=== PATIENT | male | born 1955 | race African-American/Black ===

== ENCOUNTER 2016-05-16 15:23 | Emergency (ER) | payer BC ==
[2016-05-16 15:52] VITALS: BP 140/101
--- NOTE | 2016-05-16 16:52 | RAD ---
Indication: Cough, congestion, history of left upper lobectomy. Comparison is made with previous CT of the chest dated December 13, 2015 and prior x-ray dated October 28, 2014. 2 views of the chest including dual energy PA views are reviewed. Patient is status post left upper lobectomy. Lung aviles appear hyperinflated with scarring in the left apex. Volume loss in left hemithorax is noted. Left apical pleural thickening is noted. No definite pneumonia is identified. IMPRESSION: Postoperative changes without definite evidence of active cardiopulmonary disease.
--- NOTE | 2016-05-16 17:45 | UC ---
Respiratory Complaint HPI - HPI Summary HPI Summary: BODYACHES, FEVER, COUGH SINCE YESTERDAY. 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 - History of Current Complaint Chief Complaint: UCGeneralIllness Stated Complaint: RESP COMPLAINT HEADACHE Time Seen by Provider: 05/16/16 16:14 Hx Obtained From: Patient, Family/Application Development Specialist Onset/Duration: Sudden Onset, Lasting Days, Still Present Timing: Constant Severity Initially: Moderate Severity Currently: Moderate Pain Intensity: 0 Pain Scale Used: 0-10 Numeric Character: Cough: Nonproductive Associated Signs And Symptoms: Positive: Wheezing, URI, Nasal Congestion - Risk Factors Pulmonary Embolism Risk Factors: Negative Cardiac Risk Factors: Negative Pseudomonas Risk Factors: Negative Tuberculosis Risk Factors: Negative - Allergies/Home Medications Allergies/Adverse Reactions: Allergies Allergy/AdvReac Type Severity Reaction Status Date / Time Hydrocodone Allergy Nausea Verified 05/16/16 15:52 PMH/Surg Hx/FS Hx/Imm Hx Previously Healthy: Yes Endocrine History Of: Denies: Diabetes, Thyroid Disease Cardiovascular History Of: Reports: Hypertension Denies: Pacemaker/ICD, Congestive Heart Failure, Deep Vein Thrombosis Respiratory History Of: Reports: Bronchitis - 12/2013, [place] Denies: Asthma GI/ History Of: Denies: Ulcer, Gastrointestinal Bleed, Gall Bladder Disease, Kidney Stones, Renal Disease Neurological History Of: Denies: TIA, CVA, Dementia, Seizures, Migraine Psychological History Of: Denies: Anxiety, Depression, Bipolar Disorder, Schizophrenia Cancer History Of: Reports: Prostate Cancer - Prostatectomy Other History Of: Negative For: Anticoagulant Therapy - Surgical History Surgical History: Yes Surgery Procedure, Year, and Place: RIGHT HAND TRIGGER FINGER RELEASE, [facility] [place]. 07/2013-PROSTATECTOMY AT [facility] [place]. 11/25/13, RIGHT SHOULDER, [facility] [place] - Family History Known Family History: Positive: Unknown, Respiratory Disease - Social History Occupation: Employed Full-time Lives: With Family Alcohol Use: Rare Substance Use Type: None Smoking Status (MU): Former Smoker Type: Cigarettes Amount Used/How Often: 1/2 PPD X 44 YEARS- OFF AND ON Length of Time of Smoking/Using Tobacco: 20+ YEARS Have You Smoked in the Last Year: Yes When Did the Patient Quit Smoking/Using Tobacco: 02/2014' Household Exposure Type: Cigarettes - Immunization History Most Recent Influenza Vaccination: 04/08/2014 Most Recent Tetanus Shot: UNKNOWN Most Recent Pneumonia Vaccination: 03/22/2014 Review of Systems Constitutional: Fever, Chills Skin: Negative Eyes: Negative ENT: Negative Respiratory: Cough Cardiovascular: Negative Gastrointestinal: Negative Genitourinary: Negative Motor: Negative Neurovascular: Negative Musculoskeletal: Myalgia Neurological: Negative Psychological: Negative All Other Systems Reviewed And Are Negative: Yes Physical Exam Triage Information Reviewed: Yes Appearance: Well-Appearing, Well-Nourished, Pain Distress Vital Signs: Initial Vital Signs Temp 99.1 F 05/16/16 15:46 Pulse 98 05/16/16 15:46 Resp 20 05/16/16 15:46 BP 140/101 05/16/16 15:46 Pulse Ox 97 05/16/16 15:46 Vital Signs Reviewed: Yes Eye Exam: Normal Eyes: Positive: Conjunctiva Clear ENT: Positive: Hearing grossly normal, Pharynx normal, Nasal congestion, TMs normal Dental Exam: Normal Neck exam: Normal Neck: Positive: Supple, Nontender, No Lymphadenopathy Respiratory Exam: Other - PARTIAL LEFT LUNG LOBBECTOMY Respiratory: Positive: Chest non-tender, Lungs clear, Normal breath sounds, No respiratory distress, No accessory muscle use Cardiovascular Exam: Normal Cardiovascular: Positive: RRR, No Murmur, Pulses Normal, Brisk Capillary Refill Abdominal Exam: Normal Abdomen Description: Positive: Nontender, No Organomegaly Musculoskeletal Exam: Normal Musculoskeletal: Positive: Strength Intact, ROM Intact Neurological Exam: Normal Psychological Exam: Normal Psychological: Positive: Normal Response To Family Skin Exam: Normal UC Diagnostic Evaluation - Laboratory O2 Sat by Pulse Oximetry: 97 Respiratory Course/Dx - Differential Dx/Diagnosis Differential Diagnosis/HQI/PQRI: Bronchitis, Laryngitis, Sinusitis Provider Diagnoses: INFLUENZA Discharge - Discharge Plan Condition: Stable Disposition: HOME Prescriptions: Oseltamivir CAP* [Tamiflu CAP*] 75 mg PO BID #10 cap Patient Education Materials: Influenza (ED) Forms: *Work Release Referrals: Rodolfo Del Rio MD [Primary Care Provider] -
== END 2016-05-16 17:00 | disposition home or self-care (01) ==
LOC: UCEAST 15:23
DX: J11.1 Influenza due to unidentified influenza virus with other respiratory manifestations (principal); Z88.5 Allergy status to narcotic agent; Z87.891 Personal history of nicotine dependence
CPT/HCPCS: 71020; 87502; 99212; G0463

== ENCOUNTER 2016-07-15 15:09 | Emergency (ER) | payer BC ==
[2016-07-15 15:26] VITALS: BP 151/86
[2016-07-15] MEDS ORDERED: Albuterol 2.5 MG/3 ML NEB.SOL* (0.083%) INH ONE (15:46)
[2016-07-15] MEDS ORDERED: Ibuprofen TAB* 600 MG PO ONE (15:46)
--- NOTE | 2016-07-15 15:50 | UC ---
Respiratory Complaint HPI - HPI Summary HPI Summary: Patient has had fever, SOB, cough, sore throat and left ear pain sinus congestion and LUA for a few days. - History of Current Complaint Chief Complaint: UCRespiratory Stated Complaint: COLD,COUGH,ACHES Time Seen by Provider: 07/15/16 15:37 Hx Obtained From: Patient Onset/Duration: Sudden Onset, Lasting Days Timing: Constant Severity Initially: Moderate Severity Currently: Severe Character: Cough: Productive Aggravating Factors: Exertion, Deep Breaths, Recumbent Position Alleviating Factors: Nothing Associated Signs And Symptoms: Positive: Dyspnea, Fever, Chills, Sinus Discomfort - Risk Factors Pulmonary Embolism Risk Factors: Negative Cardiac Risk Factors: Negative - Allergies/Home Medications Allergies/Adverse Reactions: Allergies Allergy/AdvReac Type Severity Reaction Status Date / Time Hydrocodone Allergy Nausea Verified 07/15/16 15:25 Home Medications: Home Medications Albuterol HFA INHALER* [Ventolin HFA Inhaler*] 07/15/16 [History] Diltiazem HCl Coated Beads [Diltiazem HCl ER] 300 mg PO DAILY 07/15/16 [History Confirmed 07/15/16] Fluticasone NASAL SPRAY 50MCG* [Flonase NASAL SPRAY 50MCG*] 07/15/16 [History] Ibuprofen TAB* [Advil TAB*] 600 mg PO PRN 07/15/16 [History] PMH/Surg Hx/FS Hx/Imm Hx Previously Healthy: Yes Endocrine History Of: Denies: Diabetes, Thyroid Disease Cardiovascular History Of: Reports: Hypertension Denies: Pacemaker/ICD, Congestive Heart Failure, Deep Vein Thrombosis Respiratory History Of: Reports: Bronchitis - 12/2013, [place] Denies: Asthma GI/ History Of: Denies: Ulcer, Gastrointestinal Bleed, Gall Bladder Disease, Kidney Stones, Renal Disease Neurological History Of: Denies: TIA, CVA, Dementia, Seizures, Migraine Psychological History Of: Denies: Anxiety, Depression, Bipolar Disorder, Schizophrenia Cancer History Of: Reports: Prostate Cancer - Prostatectomy Other History Of: Negative For: Anticoagulant Therapy - Surgical History Surgical History: Yes Surgery Procedure, Year, and Place: RIGHT HAND TRIGGER FINGER RELEASE, [facility]. 07/2013-PROST[facility]OMY AT [facility]. 11/25/13, RIGHT SHOULDER, [facility] [place] - Family History Known Family History: Positive: Unknown, Respiratory Disease - Social History Alcohol Use: None Substance Use Type: None Smoking Status (MU): Former Smoker Type: Cigarettes Amount Used/How Often: 1/2 PPD X 44 YEARS- OFF AND ON Length of Time of Smoking/Using Tobacco: 20+ YEARS Have You Smoked in the Last Year: Yes When Did the Patient Quit Smoking/Using Tobacco: 02/2014' Household Exposure Type: Cigarettes - Immunization History Most Recent Influenza Vaccination: 04/08/2014 Most Recent Tetanus Shot: UNKNOWN Most Recent Pneumonia Vaccination: 03/22/2014 Review of Systems Constitutional: Fever, Chills, Fatigue Skin: Negative Eyes: Negative ENT: Sore Throat, Ear Ache, Nasal Discharge Respiratory: Shortness Of Breath, Cough Cardiovascular: Negative Gastrointestinal: Negative Genitourinary: Negative Motor: Negative Neurovascular: Negative Musculoskeletal: Negative Neurological: Headache Psychological: Negative All Other Systems Reviewed And Are Negative: Yes Physical Exam Triage Information Reviewed: Yes Appearance: Well-Nourished, Ill-Appearing, Pain Distress Vital Signs: Initial Vital Signs Temp 102.4 F 07/15/16 15:16 Pulse 118 07/15/16 15:16 Resp 18 07/15/16 15:16 BP 151/86 07/15/16 15:16 Pulse Ox 98 07/15/16 15:16 Vital Signs Reviewed: Yes Eye Exam: Normal Eyes: Positive: Other: - sclear is red and irritated, ENT: Positive: Pharyngeal erythema, TM bulging - bilateral Neck exam: Normal Neck: Positive: Supple, Nontender, No Lymphadenopathy Respiratory Exam: Normal Respiratory: Positive: Chest non-tender, No accessory muscle use, Respiratory distress - mild, Decreased breath sounds - RLL Cardiovascular Exam: Normal Cardiovascular: Positive: No Murmur, Pulses Normal, Tachycardia Abdominal Exam: Normal Abdomen Description: Positive: Nontender, No Organomegaly, Soft Bowel Sounds: Positive: Present Musculoskeletal Exam: Normal Musculoskeletal: Positive: Strength Intact, ROM Intact, No Edema Neurological Exam: Normal Neurological: Positive: Alert, Muscle Tone Normal Psychological Exam: Normal Skin Exam: Normal UC Diagnostic Evaluation - Laboratory O2 Sat by Pulse Oximetry: 98 Respiratory Course/Dx - Course Course Of Treatment: hx obtained, exam performed, meds reviewed, xray obtained of CHest, albuterol and ibuprofen given. Chest xray is negative, treated for sinus infection with ABX, - Differential Dx/Diagnosis Differential Diagnosis/HQI/PQRI: Asthma, Bronchitis, Exacerbation Of COPD, Influenza, Laryngitis, Lower Resp Infection, Sinusitis Provider Diagnoses: sinusitis. fever. cough and wheezing Discharge - Discharge Plan Condition: Stable Disposition: HOME Patient Education Materials: Sinusitis (ED) Additional Instructions: 1. take the medication as prescribed 2. increae your fluid intake and get plenty of rest. 3. follow up with any increase in Respiratory symptoms.
--- NOTE | 2016-07-15 16:35 | RAD ---
INDICATION: Cough, fever and shortness of breath. COMPARISON: Comparison is made with a prior CT of the chest from June 14, 2016 and a prior chest x-ray study from May 16, 2016. TECHNIQUE: Dual-energy PA and lateral views of the chest were obtained. FINDINGS: The heart is within normal limits in size. There are multiple surgical clips in the left hilar region. There is volume loss in the left upper lobe and at paramediastinal infiltrate in the left upper lobe which is unchanged from the prior study. No pleural effusion is seen. IMPRESSION: POSTSURGICAL CHANGES AND CHRONIC LEFT PARAMEDIASTINAL INFILTRATE UNCHANGED FROM PRIOR STUDIES.
== END 2016-07-15 17:09 | disposition home or self-care (01) ==
LOC: UCEAST 15:09
DX: J32.9 Chronic sinusitis, unspecified (principal); I10 Essential (primary) hypertension; Z85.46 Personal history of malignant neoplasm of prostate; Z87.891 Personal history of nicotine dependence
CPT/HCPCS: 71020; 99212; A9270-GY; G0463

== ENCOUNTER 2017-09-21 14:52 | Emergency (ER) | payer BC, OTHER ==
[2017-09-21 15:21] VITALS: BP 161/117
--- NOTE | 2017-09-21 16:54 | ED ---
Farhan Ruiz Natalie, scribed for Mino Mortensen MD on 09/21/17 at 1523 . ED Suture/Wound Check - HPI Summary HPI Summary: The patient is a 62 y/o M presenting to [facility] for surgical wound check of carpal tunnel release in the left hand and wrist from surgery on 09/15/17. The pt states that the pain has been increasing in his hand since this morning, rated 8/10 in severity. He also notes drainage at the site this morning which he cleaned up. He denies fevers. Dr. Toney martinez [place] was the hand surgeon who operated on him. - History Of Current Complaint Chief Complaint: EDExtremityUpper Stated Complaint: LT HAND INJURY Time Seen by Provider: 09/21/17 15:05 Hx Obtained From: Patient Onset/Duration: Lasting Days, Still Present Severity: Moderate Pain Intensity: 8 Pain Scale Used: 0-10 Numeric Procedure Type: Carpal tunnel release Surgery Date: 09/15/17 - Dr. Ziegler in [place] - Allergies/Home Medications Allergies/Adverse Reactions: Allergies Allergy/AdvReac Type Severity Reaction Status Date / Time hydrocodone Allergy Nausea Verified 09/21/17 15:02 PMH/Surg Hx/FS Hx/Imm Hx Endocrine/Hematology History: Denies: Hx Anticoagulant Therapy, Hx Blood Disorders, Hx Blood Transfusions, Hx Bone Marrow Disease, Hx Diabetes, Hx Systemic Lupus Erythematosus, Hx Sickle Cell Disease, Hx Thyroid Disease, Hx Anemia, Hx Unexplained Bleeding, Other Endocrine/Hematological Disorders Cardiovascular History: Reports: Hx Hypertension Denies: Hx Aneurysm, Hx Angina, Hx Angioplasty, Hx Auto Implanted Cardiovert Defib, Hx Cardiac Arrest, Hx Cardiomegaly, Hx Congenital Heart Disease, Hx Congestive Heart Failure, Hx Deep Vein Thrombosis, Hx Embolism, Hx Hypercholesterolemia, Hx Hypotension, Hx Pacemaker/ICD, Hx Peripheral Vascular Disease, Hx Rheumatic Fever, Hx Syncope, Hx Valvular Heart Disease, Other Cardiovascular Problems/Disorders Respiratory History: Reports: Other Respiratory Problems/Disorders - LEFT LUNG: CANCER DX'D IN MAR 2014 Denies: Hx Asthma GI History: Denies: Hx Cirrhosis, Hx Crohn's Disease, Hx Diverticulosis, Hx Gall Bladder Disease, Hx Gastroesophageal Reflux Disease, Hx Gastrointestinal Bleed, Hx Hiatal Hernia, Hx Irritable Bowel, Hx Jaundice, Hx Obstructive Bowel, Hx Ileostomy, Hx Pyloric Stenosis, Hx Ulcer, Other GI Disorders History: Reports: Other Problems/Disorders - 08/04 PROSTATE SURGERY Denies: Hx Acute Renal Failure, Hx Benign Prostatic Hyperplasia, Hx Chronic Renal Failure, Hx Dialysis, Hx Kidney Infection, Hx Kidney Stones, Hx Renal Disease Musculoskeletal History: Reports: Hx Arthritis - RIGHT SHOULDER Denies: Hx Rheumatoid Arthritis, Hx Back Problems, Hx Bursitis, Hx Congenital Bone Abnormalities, Hx Fibromyalgia, Hx Gout, Hx Orthopedic Injury, Hx Osteoporosis, Hx Scoliosis, Hx Tendonitis, Other Musculoskeletal History Sensory History: Denies: Hx Contacts or Glasses, Hx Hearing Aid Opthamlomology History: Denies: Hx Contacts or Glasses Neurological History: Denies: Hx Dementia, Hx Developmental Delay, Hx Headaches, Hx Migraine, Hx Nerve Disease, Hx Seizures, Hx Spinal Cord Injury, Hx Transient Ischemic Attacks (TIA), Other Neuro Impairments/Disorders Psychiatric History: Denies: Hx Anxiety, Hx Attention Deficit Hyperactivity Disorder, Hx Eating Disorder, Hx Depression, Hx Panic Disorder, Hx Post Traumatic Stress Disorder, Hx Inpatient Treatment, Hx Community Mental Health Tx, Hx Schizophrenia, Hx Bipolar Disorder, Hx Suicide Attempt, Hx of Violent Episodes Against Others, Hx Substance Abuse, Other Psychiatric Issues/Disorders - Cancer History Cancer Type, Location and Year: Prostate 2013; lung 2014 Hx Chemotherapy: Yes Hx Radiation Therapy: No Hx Palliative Cancer Treatment: No - Surgical History Surgery Procedure, Year, and Place: [place] [facility] [place] AT [facility]. 11[place]25[place]13[place] [facility] [place] Anesthesia Reactions: No Infectious Disease History: No Infectious Disease History: Denies: Hx Clostridium Difficile, Hx Hepatitis, Hx Human Immunodeficiency Virus (HIV), Hx of Known/Suspected MRSA, Hx Shingles, Hx Tuberculosis, Hx Known/ Suspected VRE, Hx Known/Suspected VRSA, History Other Infectious Disease, Traveled Outside the [place] in Last 30 Days - Family History Known Family History: Positive: Respiratory Disease - Social History Alcohol Use: None Substance Use Type: Reports: None Hx Tobacco Use: Yes Smoking Status (MU): Former Smoker Type: Cigarettes Amount Used/How Often: 1/2 PPD X 44 YEARS- OFF AND ON Length of Time of Smoking/Using Tobacco: 20+ YEARS Have You Smoked in the Last Year: Yes Review of Systems Negative: Fever Positive: Other - surgical wound to left palm and wrist at carpal tunnel area with some drainage All Other Systems Reviewed And Are Negative: Yes Physical Exam - Summary Physical Exam Summary: Appearance: Well appearing, no pain distress Skin: warm, dry, reflects adequate perfusion, sutured wound area of carpal tunnel of left wrist with small area to dehiscence, 3 surgical wounds with sutures that are intact Head/face: normal Eyes: EOMI, ELIZABETH ENT: normal Neck: supple, non-tender Respiratory: CTA, breath sounds present Cardiovascular: RRR, pulses symmetrical Abdomen: non-tender, soft Bowel Sounds: present Musculoskeletal: normal, strength/ROM intact Neuro: normal, sensory motor intact, A&Ox3 Triage Information Reviewed: Yes Vital Signs On Initial Exam: Initial Vitals Temp Pulse Resp BP Pulse Ox 99.5 F 113 18 141/119 97 09/21/17 14:57 09/21/17 14:57 09/21/17 14:57 09/21/17 14:57 09/21/17 14:57 Vital Signs Reviewed: Yes Procedures - Laceration/Wound Repair 1 Location: Other - left carpal tunnel area in hand and wrist Description: Linear Laceration/Wound Explored: Other Closure: SteriStrips - 2 Sterile Dressing Applied?: Yes - xeroform and dressed Diagnostics - Vital Signs Vital Signs Temp Pulse Resp BP Pulse Ox 09/21/17 14:57 99.5 F 113 18 141/119 97 - Laboratory Lab Statement: Any lab studies that have been ordered have been reviewed, and results considered in the medical decision making process. Re-Evaluation - Re-Evaluation First Eval Re-Evaluation Time: 15:20 Change: Improved - I sutured the pt's surgical wound and placed sterile dressing on it. The pt will be discharged home. Course/Dx - Course Course Of Treatment: Patient had a carpal tunnel release and still has the sutures intact. The epidermis only is slightly dehisced and at best a minimal clear drainage from it. The wound was dressed with Steri-Strips and Xeroform gauze. He was placed on Keflex. He'll follow up with his hand surgeon. - Clinical Impression Provider Diagnoses: Wound dehiscence, Elevated blood pressure reading Discharge - Sign-Out/Discharge Documenting (check all that apply): Discharge/Admit/Transfer - Pt will be discharged home. - Discharge Plan Condition: Good Disposition: HOME Prescriptions: Cephalexin CAP* [Keflex CAP*] 500 mg PO TID #15 cap Patient Education Materials: Wound Dehiscence (ED) Referrals: Rodolfo Del Rio MD [Primary Care Provider] - Additional Instructions: Follow-up with your hand surgeon tomorrow. Antibiotics are prescribed into the pharmacy for you. Return with puslike drainage, worse, new symptoms or other concerns. - Billing Disposition and Condition Condition: GOOD Disposition: Home The documentation as recorded by the Farhan lucas Natalie accurately reflects the service I personally performed and the decisions made by me, Mino Mortensen MD.
== END 2017-09-21 15:20 | disposition home or self-care (01) ==
LOC: ED 14:52
DX: T81.31XA Disruption of external operation (surgical) wound, not elsewhere classified, initial encounter (principal); Z87.891 Personal history of nicotine dependence
CPT/HCPCS: 99282

== ENCOUNTER → 2017-09-27 08:48 | Emergency (ER) | payer BC ==
[2017-09-27 08:55] VITALS: BP 157/106
== END | disposition left against medical advice (07) ==
LOC: ED 08:48
DX: R60.0 Localized edema (principal); Z53.21 Procedure and treatment not carried out due to patient leaving prior to being seen by health care provider

== ENCOUNTER 2017-09-27 21:11 | Emergency (ER) | payer BC ==
[2017-09-27] MEDS ORDERED: Cefepime(*) 2 GM in NS 0.9% 50 ML* 50 ML IVPB ONE (21:30)
[2017-09-27] MEDS ORDERED: Ketorolac INJ* 30 MG/ML 1 ML VIAL IV PUSH ONE (21:31)
[2017-09-27] MEDS ORDERED: NS 0.9% 50 ML* 50 ML ONE (21:38)
[2017-09-27] MEDS ORDERED: NS 0.9% 1000 ML* 1,000 ML IV ONE (21:39)
[2017-09-27 21:55] LABS: ABS Basophils 0.1 10^3/ul (0-0.2); ABS Eosinophils 0.1 10^3/ul (0-0.6); ABS Lymphocytes 1.5 10^3/ul (1.0-4.8); ABS Monocytes 0.4 10^3/ul (0-0.8); ABS Neutrophils 3.4 10^3/ul (1.5-7.7); ABS Nucleated RBC 0 10^3/ul; Eosinophil % 2.7 % (0-6); Hematocrit 46 % (42-52); Hemoglobin 15.7 g/dl (14.0-18.0); Lymphocyte % 27.3 % (25-47); Mean Corpuscular HGB Conc 34 g/dl (31-36); Mean Corpuscular Hemoglobin 31 pg (27-31); Mean Corpuscular Volume 90 fL (80-94); Mean Platelet Volume 7.9 um3 (7.4-10.4); Nucleated Red Blood Cells % 0.1; Platelet Count 205 10^3/ul (150-450); Red Blood Count 5.14 10^6/ul (4.00-5.40); Red Cell Distribution Width 14 % (10.5-15); White Blood Count 5.5 10^3/ul (3.5-10.8)
[2017-09-27] MEDS ORDERED: Vancomycin(*) 1,250 MG IV x ONCE IVPB ONE ×2 (22:00)
[2017-09-27] MEDS ORDERED: Vancomycin(*) 1,000 MG VIAL IVPB SCH (22:00)
[2017-09-27 22:12] LABS: EGFR Non-African American 51.3 (>60)
--- NOTE | 2017-09-27 22:19 | ED ---
Upper Extremity Pain - HPI Summary HPI Summary: Patient is a 62-year-old male 2 weeks s/p left carpal tunnel surgery with complaint of left volar wrist pain and swelling with erythema streak extending proximally up the forearm. Denies any pain to the forearm, however endorses pain to the volar wrist. Denies any pain to the dorsum of the wrist. He was seen 1 week ago with complaint of swelling in the wrist and hand with slight erythema to the area. He was prescribed antibiotics but states he never picked these up. Swelling is now worsening and now he has developed the red streak up the arm. Denies any fevers, sweats, chills. He is able to make a fist without pain. Denies any decreased strength. Good cap refill. Radial side pulses good. - History of Current Complaint Chief Complaint: EDExtremityUpper Stated Complaint: HAND INJURY Time Seen by Provider: 09/27/17 21:25 Hx Obtained From: Patient Onset/Duration: Started Hours Ago Timing: Constant Severity Initially: Moderate Severity Currently: Moderate Pain Location: Forearm, Wrist Character: Aching Aggravating Factor(s): Lifting, Flexion, Extension Alleviating Factor(s): Rest, Ice Associated Signs & Symptoms: Positive: Swelling, Redness. Negative: Numbness/ Tingling Related History: Dominant Hand Right - Risk Factors Non-Orthopedic Risk Factor: Negative DVT Risk Factors: Negative Septic Arthritis Risk Factor: Negative Compartment Syndrome Risk Factors: Pain - Allergies/Home Medications Allergies/Adverse Reactions: Allergies Allergy/AdvReac Type Severity Reaction Status Date / Time hydrocodone Allergy Nausea Verified 09/27/17 21:33 Home Medications: Home Medications Cephalexin CAP* [Keflex 500 CAP*] 500 mg PO BID 09/28/17 [History Confirmed 11/08] PMH/Surg Hx/FS Hx/Imm Hx Previously Healthy: Yes Endocrine/Hematology History: Denies: Hx Anticoagulant Therapy, Hx Blood Disorders, Hx Blood Transfusions, Hx Bone Marrow Disease, Hx Diabetes, Hx Systemic Lupus Erythematosus, Hx Sickle Cell Disease, Hx Thyroid Disease, Hx Anemia, Hx Unexplained Bleeding, Other Endocrine/Hematological Disorders Cardiovascular History: Reports: Hx Hypertension Denies: Hx Aneurysm, Hx Angina, Hx Angioplasty, Hx Auto Implanted Cardiovert Defib, Hx Cardiac Arrest, Hx Cardiomegaly, Hx Congenital Heart Disease, Hx Congestive Heart Failure, Hx Deep Vein Thrombosis, Hx Embolism, Hx Hypercholesterolemia, Hx Hypotension, Hx Pacemaker/ICD, Hx Peripheral Vascular Disease, Hx Rheumatic Fever, Hx Syncope, Hx Valvular Heart Disease, Other Cardiovascular Problems/Disorders Respiratory History: Reports: Other Respiratory Problems/Disorders - LEFT LUNG: CANCER DX'D IN MAR 2014 Denies: Hx Asthma GI History: Denies: Hx Cirrhosis, Hx Crohn's Disease, Hx Diverticulosis, Hx Gall Bladder Disease, Hx Gastroesophageal Reflux Disease, Hx Gastrointestinal Bleed, Hx Hiatal Hernia, Hx Irritable Bowel, Hx Jaundice, Hx Obstructive Bowel, Hx Ileostomy, Hx Pyloric Stenosis, Hx Ulcer, Other GI Disorders History: Reports: Other Problems/Disorders - 08/04 PROSTATE SURGERY Denies: Hx Acute Renal Failure, Hx Benign Prostatic Hyperplasia, Hx Chronic Renal Failure, Hx Dialysis, Hx Kidney Infection, Hx Kidney Stones, Hx Renal Disease Musculoskeletal History: Reports: Hx Arthritis - RIGHT SHOULDER Denies: Hx Rheumatoid Arthritis, Hx Back Problems, Hx Bursitis, Hx Congenital Bone Abnormalities, Hx Fibromyalgia, Hx Gout, Hx Orthopedic Injury, Hx Osteoporosis, Hx Scoliosis, Hx Tendonitis, Other Musculoskeletal History Sensory History: Denies: Hx Contacts or Glasses, Hx Hearing Aid Opthamlomology History: Denies: Hx Contacts or Glasses Neurological History: Denies: Hx Dementia, Hx Developmental Delay, Hx Headaches, Hx Migraine, Hx Nerve Disease, Hx Seizures, Hx Spinal Cord Injury, Hx Transient Ischemic Attacks (TIA), Other Neuro Impairments/Disorders Psychiatric History: Denies: Hx Anxiety, Hx Attention Deficit Hyperactivity Disorder, Hx Eating Disorder, Hx Depression, Hx Panic Disorder, Hx Post Traumatic Stress Disorder, Hx Inpatient Treatment, Hx Community Mental Health Tx, Hx Schizophrenia, Hx Bipolar Disorder, Hx Suicide Attempt, Hx of Violent Episodes Against Others, Hx Substance Abuse, Other Psychiatric Issues/Disorders - Cancer History Cancer Type, Location and Year: Prostate 2013; lung 2014 Hx Chemotherapy: Yes Hx Radiation Therapy: No Hx Palliative Cancer Treatment: No - Surgical History Surgery Procedure, Year, and Place: RIGHT HAND TRIGGER FINGER RELEASE, [facility]. 07/2013-PROSTATECTOMY AT [facility]. 11/25/13, RIGHT SHOULDER, [facility] Hx Anesthesia Reactions: No - Immunization History Date of Tetanus Vaccine: unk Date of Influenza Vaccine: fall 2016 Hx Pertussis Vaccination: No Immunizations Up to Date: Unable to Obtain/Confirm Infectious Disease History: No Infectious Disease History: Denies: Hx Clostridium Difficile, Hx Hepatitis, Hx Human Immunodeficiency Virus (HIV), Hx of Known/Suspected MRSA, Hx Shingles, Hx Tuberculosis, Hx Known/ Suspected VRE, Hx Known/Suspected VRSA, History Other Infectious Disease, Traveled Outside the [place] in Last 30 Days - Family History Known Family History: Positive: Unknown, Respiratory Disease - Social History Occupation: Employed Full-time Lives: With Family Alcohol Use: None Hx Substance Use: No Substance Use Type: Reports: None Hx Tobacco Use: Yes Smoking Status (MU): Former Smoker Type: Cigarettes Amount Used/How Often: 1/2 PPD X 44 YEARS- OFF AND ON Length of Time of Smoking/Using Tobacco: 20+ YEARS Have You Smoked in the Last Year: Yes Review of Systems Constitutional: Negative Negative: Fever, Chills, Fatigue, Skin Diaphoresis Negative: Epistaxis, Dental Pain Negative: Palpitations, Chest Pain Genitourinary: Negative Positive: no symptoms reported, see HPI Positive: Arthralgia - left volar wrist pain Positive: Other - erythematous streak up to the elbow from wrist Neurological: Negative All Other Systems Reviewed And Are Negative: Yes Physical Exam Triage Information Reviewed: Yes Vital Signs On Initial Exam: Initial Vitals Temp Pulse Resp BP Pulse Ox 97.8 F 85 16 168/114 98 09/27/17 21:18 09/27/17 21:18 09/27/17 21:18 09/27/17 21:18 09/27/17 21:18 Vital Signs Reviewed: Yes Appearance: Positive: Well-Appearing, Well-Nourished Skin: Positive: Warm, Skin Color Reflects Adequate Perfusion, Other - left volar wrist erythema and swelling with eythematous streak up the forearm extending to the elbow resembling a superficial thrombophlebititis as this area is slightly raised. Head/Face: Positive: Normal Head/Face Inspection Eyes: Positive: Normal, ELIZABETH, Conjunctiva Clear Neck: Positive: Supple, Nontender, No Lymphadenopathy Respiratory/Lung Sounds: Positive: Clear to Auscultation, Breath Sounds Present Cardiovascular: Positive: RRR, Pulses are Symmetrical in both Upper and Lower Extremities Neurological: Positive: Sensory/Motor Intact, Alert, Oriented to Person Place, Time Psychiatric: Positive: Normal AVPU Assessment: Alert Diagnostics - Vital Signs Vital Signs Temp Pulse Resp BP Pulse Ox 09/27/17 21:18 97.8 F 85 16 168/114 98 - Laboratory Lab Results: Lab Results 09/27/17 09/27/17 09/27/17 Range/Units 21:44 21:44 21:44 WBC 5.5 (3.5-10.8) 10^3/ul RBC 5.14 (4.00-5.40) 10^6/ul Hgb 15.7 (14.0-18.0) g/dl Hct 46 (42-52) % MCV 90 (80-94) fL MCH 31 (27-31) pg MCHC 34 (31-36) g/dl RDW 14 (10.5-15) % Plt Count 205 (150-450) 10^3/ul MPV 7.9 (7.4-10.4) um3 Neut % (Auto) 61.7 (38-83) % Lymph % (Auto) 27.3 (25-47) % [place] % (Auto) 7.2 H (0-7) % Eos % (Auto) 2.7 (0-6) % Baso % (Auto) 1.1 (0-2) % Absolute Neuts (auto) 3.4 (1.5-7.7) 10^3/ul Absolute Lymphs (auto) 1.5 (1.0-4.8) 10^3/ul Absolute Monos (auto) 0.4 (0-0.8) 10^3/ul Absolute Eos (auto) 0.1 (0-0.6) 10^3/ul Absolute Basos (auto) 0.1 (0-0.2) 10^3/ul Absolute Nucleated RBC 0 10^3/ul Nucleated RBC % 0.1 ESR Pending Sodium 136 (135-145) mmol/L Potassium 3.9 (3.5-5.0) mmol/L Chloride 102 (101-111) mmol/L Carbon Dioxide 24 (22-32) mmol/L Anion Gap 10 (2-11) mmol/L BUN 19 (6-24) mg/dL Creatinine 1.41 H (0.67-1.17) mg/dL Est GFR ( Amer) 62.0 (>60) Est GFR (Non-Af Amer) 51.3 (>60) BUN/Creatinine Ratio 13.5 (8-20) Glucose 88 (70-100) mg/dL Lactic Acid 1.2 (0.5-2.0) mmol/L Calcium 9.1 (8.6-10.3) mg/dL Total Bilirubin 0.50 (0.2-1.0) mg/dL AST 22 (13-39) U/L ALT 22 (7-52) U/L Alkaline Phosphatase 68 (34-104) U/L Total Protein 7.2 (6.4-8.9) g/dL Albumin 4.2 (3.2-5.2) g/dL Globulin 3.0 (2-4) g/dL Albumin/Globulin Ratio 1.4 (1-3) Result Diagrams: 09/27/17 21:44 09/27/17 21:44 Lab Statement: Any lab studies that have been ordered have been reviewed, and results considered in the medical decision making process. Course/Dx - Course Course Of Treatment: During the course of treatment, the patient's evaluated for left-sided volar wrist pain and swelling 2 weeks s/p carpal tunnel surgery. He states he has an appointment in 2 days with his surgeon at [facility]. He was seen in the ED for same one week ago and was prescribed antibiotics, however he never picked him up. CT of the extremity obtained to assure no abscess. CT findings state there is mild diffuse stranding and edema noted in the subcutaneous fat of the volar aspect of the distal forearm and wrist. No localized inflammatory fluid collection or abscess is seen. There is no gas seen in the soft tissues. Vancomycin and cefepime ordered while awaiting labs. Blood cultures pending. Labs obtained and are unremarkable showing no elevated white count. No elevated sedimentation rate and CRP is only mildly elevated at 10. He will be discharged home with the Keflex he was prescribed last week 3 times daily. The red streak to the volar forearm appears to be a superficial thrombophlebitis. He will take ibuprofen 600mg three times daily as well as ice to the area. He voices no concerns at this time. He will follow -up on Friday as scheduled. - Diagnoses Provider Diagnoses: Superficial thrombophlebitis Discharge - Sign-Out/Discharge Documenting (check all that apply): Discharge/Admit/Transfer - Discharge Plan Condition: Stable Disposition: HOME Referrals: Rodolfo Del Rio MD [Primary Care Provider] - Additional Instructions: As discussed, there is no obvious abscess or fluid collection. You do not have any other evidence of systemic infection You appear to have a thrombophlebitis to the arm Ibuprofen 600mg three times daily Ice compresses to the area Keflex as prescribed - do not miss a dose Follow up with your orthopedic surgeon as scheduled on Friday - Billing Disposition and Condition Condition: STABLE Disposition: Home
[2017-09-28 00:05] VITALS: BP 126/82
--- NOTE | 2017-09-28 06:55 | RAD ---
INDICATION: Infection left hand. COMPARISON: There are no prior studies available for comparison. TECHNIQUE: Contiguous axial sections were obtained of the left hand. Images were reconstructed in the sagittal and coronal planes. FINDINGS: There is diffuse soft tissue swelling which is mainly in the subcutaneous tissues most prominent along the volar aspect of the hand and wrist. No focal fluid collection or abscess is seen. There is a transverse ununited fracture through the midportion of the scaphoid bone. There is also a small ununited fracture fragment arising from the dorsal aspect of the lunate bone. There is dorsal tilting of the lunate bone consistent with dorsal intercalated segmental instability. There is cystic or erosive change present throughout the carpal bones. IMPRESSION: 1. SOFT TISSUE SWELLING MOST CONSISTENT WITH CELLULITIS. NO EVIDENCE FOR ABSCESS. 2. OLD UNUNITED FRACTURES OF THE SCAPHOID AND LUNATE BONES. 3. DORSAL INTERCALATED SEGMENTAL INSTABILITY. 4. LUCENT LESIONS IN THE CARPAL BONES SUGGESTIVE OF EROSIONS OR SUBCHONDRAL CYSTIC CHANGE.
== END 2017-09-28 00:06 | disposition home or self-care (01) ==
LOC: ED 21:11
DX: I80.8 Phlebitis and thrombophlebitis of other sites (principal); M89.9 Disorder of bone, unspecified; Z87.891 Personal history of nicotine dependence; Z88.5 Allergy status to narcotic agent
CPT/HCPCS: 36415; 80053; 83605; 85025; 85652; 86140; 87040; 96365; 96375; 99283; J0692; J1885; J3370

== ENCOUNTER 2017-12-09 14:31 | Emergency (ER) | payer BC ==
[2017-12-09 15:01] VITALS: BP 126/101
--- NOTE | 2017-12-09 15:55 | RAD ---
Indication: 3 weeks LEFT shoulder pain without proceeding injury. Comparison: No relevant prior exams available on the [facility] PACS for comparison. Technique: Internal rotation AP, external rotation Grashey, scapular Y, axillary views LEFT shoulder Report: Negative for fracture or suspicious focal osseous lesion. Small inferior acromial bone spur. Mild glenohumeral joint osteophytosis without significant joint space narrowing. Reference the internal rotation view there is evidence for calcific tendinopathy involving the infraspinatus tendon. Unremarkable soft tissue contours. IMPRESSION: #. Mild glenohumeral joint osteoarthritis. #. Calcific tendinopathy of the infraspinatus. #. Small inferior acromial bone spur.
--- NOTE | 2017-12-09 16:02 | UC ---
Shoulder Pain HPI - HPI Summary HPI Summary: left shoulder pain x 3 weeks no known injury , lots of heavy lifting at work pain is on top of the left shoulder, radiation to left bicep + weakness of left arm - History of Current Complaint Chief Complaint: UCUpperExtremity Stated Complaint: L SHOULDER PAIN Time Seen by Provider: 12/09/17 15:29 Hx Obtained From: Patient Onset/Duration: Gradual Onset, Lasting Weeks - 3, Still Present Timing: Constant Severity Initially: Moderate Severity Currently: Moderate Pain Intensity: 9 Character: Aching Aggravating Factor(s): Movement, Lifting, Flexion, Extension Alleviating Factor(s): Rest Associated Signs And Symptoms: Positive: Weakness. Negative: Swelling, Redness , Bruising, Fever, Numbness/Tingling - Allergies/Home Medications Allergies/Adverse Reactions: Allergies Allergy/AdvReac Type Severity Reaction Status Date / Time hydrocodone Allergy Nausea Verified 12/09/17 15:01 PMH/Surg Hx/FS Hx/Imm Hx - Additional Past Medical History Additional PMH: prostate ca Cardiovascular History: Hypertension Other History Of: Negative For: Anticoagulant Therapy - Surgical History Surgical History: Yes Surgery Procedure, Year, and Place: RIGHT HAND TRIGGER [place] [facility]-PROST[facility]OMY AT [facility]. 11/25/13, RIGHT SHOULDER, [facility] - Family History Known Family History: Positive: Unknown, Respiratory Disease - Social History Alcohol Use: Rare Substance Use Type: None Smoking Status (MU): Former Smoker Type: Cigarettes Amount Used/How Often: 1/2 PPD X 44 YEARS- OFF AND ON Length of Time of Smoking/Using Tobacco: 20+ YEARS Have You Smoked in the Last Year: Yes When Did the Patient Quit Smoking/Using Tobacco: 02/2014' Household Exposure Type: Cigarettes - Immunization History Most Recent Influenza Vaccination: 04/08/2014 Most Recent Tetanus Shot: UNKNOWN Most Recent Pneumonia Vaccination: 03/22/2014 Review of Systems Constitutional: Negative Skin: Negative Eyes: Negative ENT: Negative Respiratory: Negative Is Patient Immunocompromised?: No All Other Systems Reviewed And Are Negative: Yes Physical Exam Triage Information Reviewed: Yes Appearance: Well-Appearing, No Pain Distress, Well-Nourished Vital Signs: Initial Vital Signs Temp 98.1 F 12/09/17 14:56 Pulse 99 12/09/17 14:56 Resp 20 12/09/17 14:56 BP 126/101 12/09/17 14:56 Pulse Ox 97 12/09/17 14:56 Vital Signs Reviewed: Yes Eyes: Positive: Conjunctiva Clear ENT: Positive: Normal ENT inspection, Hearing grossly normal, Pharynx normal Neck: Positive: Supple, Nontender, No Lymphadenopathy Respiratory: Positive: Chest non-tender, Lungs clear, Normal breath sounds Cardiovascular: Positive: RRR, No Murmur, Pulses Normal Musculoskeletal: Positive: Other: - left shoulder: no swelling, no erythema, + diffuse tenderness, pain with flexion and extension , good strength Diagnostics - Laboratory Diagnostic Studies Completed/Ordered: left shoulder : IMPRESSION: #. Mild glenohumeral joint osteoarthritis. #. Calcific tendinopathy of the infraspinatus. #. Small inferior acromial bone spur. Shoulder Course/Dx - Differential Dx/Diagnosis Provider Diagnoses: calcific tendonitis left shoulder Discharge - Sign-Out/Discharge Documenting (check all that apply): Patient Departure All imaging exams completed and their final reports reviewed: Yes - Discharge Plan Condition: Stable Disposition: HOME Prescriptions: Naproxen [Naproxen 500 mg tab] 500 mg PO BID #20 tablet Patient Education Materials: Calcific Tendinitis (ED) Referrals: Rodolfo Del Rio MD [Primary Care Provider] - 7 Days - Billing Disposition and Condition Condition: STABLE Disposition: Home
== END 2017-12-09 16:04 | disposition home or self-care (01) ==
LOC: UCEAST 14:31
DX: M75.32 Calcific tendinitis of left shoulder (principal); M19.012 Primary osteoarthritis, left shoulder; Z87.891 Personal history of nicotine dependence; Z88.5 Allergy status to narcotic agent
CPT/HCPCS: 99212; G0463

== ENCOUNTER 2018-04-20 03:08 | Emergency (ER) | payer SELFPAY ==
--- NOTE | 2018-04-20 03:25 | ED ---
Throat Pain/Nasal Congestion - HPI Summary HPI Summary: A 62 y/o M presents to ED with c/o constant R-sided lower dental pain onset yesterday. Pain is described as throbbing. He had a similar pain at the same tooth two years ago. He took ABX which resolved the pain. He did not follow-up with a dentist at that time. - History of Current Complaint Chief Complaint: EDDentalPain Time Seen by Provider: 04/20/18 03:21 Hx Obtained From: Patient Onset/Duration: Lasting Days - yesterday, Still Present - Allergies/Home Medications Allergies/Adverse Reactions: Allergies Allergy/AdvReac Type Severity Reaction Status Date / Time hydrocodone Allergy Nausea Verified 04/20/18 03:13 Home Medications: Home Medications Fluticasone HFA 110 mcg(NF) [Flovent HFA 110 mcg(NF)] 1 puff INH BID 04/20/18 [ History Confirmed 04/20/18] PMH/Surg Hx/FS Hx/Imm Hx Previously Healthy: No Endocrine/Hematology History: Denies: Hx Anticoagulant Therapy, Hx Blood Disorders, Hx Blood Transfusions, Hx Bone Marrow Disease, Hx Diabetes, Hx Systemic Lupus Erythematosus, Hx Sickle Cell Disease, Hx Thyroid Disease, Hx Anemia, Hx Unexplained Bleeding, Other Endocrine/Hematological Disorders Cardiovascular History: Reports: Hx Hypertension Denies: Hx Aneurysm, Hx Angina, Hx Angioplasty, Hx Auto Implanted Cardiovert Defib, Hx Cardiac Arrest, Hx Cardiomegaly, Hx Congenital Heart Disease, Hx Congestive Heart Failure, Hx Deep Vein Thrombosis, Hx Embolism, Hx Hypercholesterolemia, Hx Hypotension, Hx Pacemaker/ICD, Hx Peripheral Vascular Disease, Hx Rheumatic Fever, Hx Syncope, Hx Valvular Heart Disease, Other Cardiovascular Problems/Disorders Respiratory History: Reports: Other Respiratory Problems/Disorders - LEFT LUNG: CANCER DX'D IN MAR 2014 Denies: Hx Asthma, Hx Chronic Obstructive Pulmonary Disease (COPD) GI History: Denies: Hx Cirrhosis, Hx Crohn's Disease, Hx Diverticulosis, Hx Gall Bladder Disease, Hx Gastroesophageal Reflux Disease, Hx Gastrointestinal Bleed, Hx Hiatal Hernia, Hx Irritable Bowel, Hx Jaundice, Hx Obstructive Bowel, Hx Ileostomy, Hx Pyloric Stenosis, Hx Ulcer, Other GI Disorders History: Reports: Other Problems/Disorders - 08/04 PROSTATE SURGERY Denies: Hx Acute Renal Failure, Hx Benign Prostatic Hyperplasia, Hx Chronic Renal Failure, Hx Dialysis, Hx Kidney Infection, Hx Kidney Stones, Hx Renal Disease Musculoskeletal History: Reports: Hx Arthritis - RIGHT SHOULDER Denies: Hx Rheumatoid Arthritis, Hx Back Problems, Hx Bursitis, Hx Congenital Bone Abnormalities, Hx Fibromyalgia, Hx Gout, Hx Orthopedic Injury, Hx Osteoporosis, Hx Scoliosis, Hx Tendonitis, Other Musculoskeletal History Sensory History: Denies: Hx Contacts or Glasses, Hx Hearing Aid Opthamlomology History: Denies: Hx Contacts or Glasses Neurological History: Denies: Hx Dementia, Hx Developmental Delay, Hx Headaches, Hx Migraine, Hx Nerve Disease, Hx Seizures, Hx Spinal Cord Injury, Hx Transient Ischemic Attacks (TIA), Other Neuro Impairments/Disorders Psychiatric History: Denies: Hx Anxiety, Hx Attention Deficit Hyperactivity Disorder, Hx Eating Disorder, Hx Depression, Hx Panic Disorder, Hx Post Traumatic Stress Disorder, Hx Inpatient Treatment, Hx Community Mental Health Tx, Hx Schizophrenia, Hx Bipolar Disorder, Hx Suicide Attempt, Hx of Violent Episodes Against Others, Hx Substance Abuse, Other Psychiatric Issues/Disorders - Cancer History Cancer Type, Location and Year: Prostate 2013; lung 2014 Hx Chemotherapy: Yes Hx Radiation Therapy: No Hx Palliative Cancer Treatment: No - Surgical History Surgery Procedure, Year, and Place: RIGHT HAND TRIGGER FINGER RELEASE, [facility]. 07/2013-PROSTATECTOMY AT [facility]. 11/25/13, RIGHT SHOULDER, [facility] Hx Anesthesia Reactions: No - Immunization History Date of Tetanus Vaccine: unk Date of Influenza Vaccine: fall 2016 Infectious Disease History: No Infectious Disease History: Denies: Hx Clostridium Difficile, Hx Hepatitis, Hx Human Immunodeficiency Virus (HIV), Hx of Known/Suspected MRSA, Hx Shingles, Hx Tuberculosis, Hx Known/ Suspected VRE, Hx Known/Suspected VRSA, History Other Infectious Disease, Traveled Outside the [place] in Last 30 Days - Family History Known Family History: Positive: Respiratory Disease - Social History Occupation: Employed Full-time Lives: With Family Alcohol Use: Rare Hx Substance Use: No Substance Use Type: Reports: None Hx Tobacco Use: Yes Smoking Status (MU): Former Smoker Type: Cigarettes Amount Used/How Often: 1/2 PPD X 44 YEARS- OFF AND ON Length of Time of Smoking/Using Tobacco: 20+ YEARS Have You Smoked in the Last Year: Yes Review of Systems Positive: Dental Pain Negative: Cough All Other Systems Reviewed And Are Negative: Yes Physical Exam - Summary Physical Exam Summary: Appearance: Well-appearing, Well-nourished, lying in bed comfortable Skin: Warm, dry, no obvious rash Eyes: sclera anicteric, no conjunctival pallor ENT: mucous membranes moist DENTAL: R lower 1st molar is extensively carious, pointing at the gingiva at base of the tooth Neck: deferred Respiratory: No signs of respiratory distress Cardiovascular: Appears well perfused, pulses are nml Abdomen: deferred Musculoskeletal: Moving all 4 extremities without obvious discomfort Neurological: Awake and alert, mentation is normal, speech is fluent and appropriate Psychiatric: affect is normal, does not appear anxious or depressed Triage Information Reviewed: Yes Vital Signs On Initial Exam: Initial Vitals Temp Pulse Resp BP Pulse Ox 97.5 F 99 16 171/131 95 04/20/18 03:09 04/20/18 03:09 04/20/18 03:09 04/20/18 03:09 04/20/18 03:09 Vital Signs Reviewed: Yes Diagnostics - Vital Signs Vital Signs Temp Pulse Resp BP Pulse Ox 04/20/18 03:09 97.5 F 99 16 171/131 95 - Laboratory Lab Statement: Any lab studies that have been ordered have been reviewed, and results considered in the medical decision making process. EENT Course/Dx - Course Course Of Treatment: A 62 y/o M presents to ED with c/o constant R-sided lower dental pain onset yesterday. Pain is described as throbbing. He had a similar pain at the same tooth two years ago. He took ABX which resolved the pain. He did not follow-up with a dentist at that time. After administering a dental block with bupivacaine and lidocaine with epinephrine and obtaining good anesthesia, the dental abscess at the gingiva was incised with a #11 blade and pus exuded from the wound. Pt will be D/C home with penicillin and to f/u with a dentist. - Diagnoses Provider Diagnoses: Dental abscess Discharge - Sign-Out/Discharge Documenting (check all that apply): Patient Departure - D/C - Discharge Plan Condition: Stable Disposition: HOME Prescriptions: Penicillin VK TAB* [Penicillin VK 250 mg Tab*] 500 mg PO QID #40 tab Patient Education Materials: Dental Abscess (ED) Forms: *Work Release Referrals: Rodolfo Del Rio MD [Primary Care Provider] - Additional Instructions: You need to see a dentist to have that tooth pulled, otherwise it's going to keep getting abscessed. - Billing Disposition and Condition Condition: STABLE Disposition: Home - Attestation Statements Document Initiated by Shayy: Yes Documenting Scribe: Zenaida Celis Provider For Whom Shayy is Documenting (Include Credential): Dr. Edwin Garcia MD Scribe Attestation: Zenaida Ruiz, scribed for Dr. Edwin Garcia MD on 04/20/18 at 0530. Scribe Documentation Reviewed: Yes Provider Attestation: The documentation as recorded by the shayy, Zenaida Celis accurately reflects the service I personally performed and the decisions made by me, Dr. Edwin Gracia MD Status of Scribe Document: Viewed
[2018-04-20] MEDS ORDERED: Penicillin VK TAB* 250 MG PO ONE (03:34)
[2018-04-20 03:52] VITALS: BP 167/120
== END 2018-04-20 03:50 | disposition home or self-care (01) ==
LOC: ED 03:08
DX: K04.7 Periapical abscess without sinus (principal); Z88.5 Allergy status to narcotic agent; Z87.891 Personal history of nicotine dependence
CPT/HCPCS: 99282

== ENCOUNTER → 2018-07-02 09:22 | Emergency (ER) | payer BC ==
[~2018-07-02 09:22] MED LIST: Diltiazem CD CAP* 120 MG PO ONE; Diltiazem CD CAP* 180 MG PO SCH
[2018-07-02 09:30] VITALS: BP 174/116
--- NOTE | 2018-07-02 10:22 | ED ---
Hypertension - HPI Summary HPI Summary: A 63 y/o M with PMHx: HTN, Lung CA presents to ED sent from oncology, Dr. Bhat 's office for elevated BP (162/126) this AM. Pt ran out of his HTN medication for an unknown amount of time. Denies LUA, CP, SOB, blurred vision. He had Lung CA about 6 years ago, and did chemo/radiation, had part of his lung removed. Denies PMHx: DM. - History of Current Complaint Chief Complaint: EDHypertension Stated Complaint: HIGH BP PER NURSE Time Seen by Provider: 07/02/18 10:20 Hx Obtained From: Patient Onset/Duration: Atraumatic, Still Present Timing: Constant Reported Blood Pressure Prior To Arrival: 162/126 Associated Signs & Symptoms: Negative Related Hx: Rx Non-Compliance - Allergies/Home Medications Allergies/Adverse Reactions: Allergies Allergy/AdvReac Type Severity Reaction Status Date / Time hydrocodone Allergy Nausea Verified 07/02/18 10:28 PMH/Surg Hx/FS Hx/Imm Hx Previously Healthy: No Endocrine/Hematology History: Denies: Hx Anticoagulant Therapy, Hx Blood Disorders, Hx Blood Transfusions, Hx Bone Marrow Disease, Hx Diabetes, Hx Systemic Lupus Erythematosus, Hx Sickle Cell Disease, Hx Thyroid Disease, Hx Anemia, Hx Unexplained Bleeding, Other Endocrine/Hematological Disorders Cardiovascular History: Reports: Hx Hypertension Denies: Hx Aneurysm, Hx Angina, Hx Angioplasty, Hx Auto Implanted Cardiovert Defib, Hx Cardiac Arrest, Hx Cardiomegaly, Hx Congenital Heart Disease, Hx Congestive Heart Failure, Hx Deep Vein Thrombosis, Hx Embolism, Hx Hypercholesterolemia, Hx Hypotension, Hx Pacemaker/ICD, Hx Peripheral Vascular Disease, Hx Rheumatic Fever, Hx Syncope, Hx Valvular Heart Disease, Other Cardiovascular Problems/Disorders Respiratory History: Reports: Other Respiratory Problems/Disorders - LEFT LUNG: CANCER DX'D IN MAR 2014 Denies: Hx Asthma, Hx Chronic Obstructive Pulmonary Disease (COPD) GI History: Denies: Hx Cirrhosis, Hx Crohn's Disease, Hx Diverticulosis, Hx Gall Bladder Disease, Hx Gastroesophageal Reflux Disease, Hx Gastrointestinal Bleed, Hx Hiatal Hernia, Hx Irritable Bowel, Hx Jaundice, Hx Obstructive Bowel, Hx Ileostomy, Hx Pyloric Stenosis, Hx Ulcer, Other GI Disorders History: Reports: Other Problems/Disorders - 08/04 PROSTATE SURGERY Denies: Hx Acute Renal Failure, Hx Benign Prostatic Hyperplasia, Hx Chronic Renal Failure, Hx Dialysis, Hx Kidney Infection, Hx Kidney Stones, Hx Renal Disease Musculoskeletal History: Reports: Hx Arthritis - RIGHT SHOULDER Denies: Hx Rheumatoid Arthritis, Hx Back Problems, Hx Bursitis, Hx Congenital Bone Abnormalities, Hx Fibromyalgia, Hx Gout, Hx Orthopedic Injury, Hx Osteoporosis, Hx Scoliosis, Hx Tendonitis, Other Musculoskeletal History Sensory History: Denies: Hx Contacts or Glasses, Hx Hearing Aid Opthamlomology History: Denies: Hx Contacts or Glasses Neurological History: Denies: Hx Dementia, Hx Developmental Delay, Hx Headaches, Hx Migraine, Hx Nerve Disease, Hx Seizures, Hx Spinal Cord Injury, Hx Transient Ischemic Attacks (TIA), Other Neuro Impairments/Disorders Psychiatric History: Denies: Hx Anxiety, Hx Attention Deficit Hyperactivity Disorder, Hx Eating Disorder, Hx Depression, Hx Panic Disorder, Hx Post Traumatic Stress Disorder, Hx Inpatient Treatment, Hx Community Mental Health Tx, Hx Schizophrenia, Hx Bipolar Disorder, Hx Suicide Attempt, Hx of Violent Episodes Against Others, Hx Substance Abuse, Other Psychiatric Issues/Disorders - Cancer History Cancer Type, Location and Year: Prostate 2013; lung 2014 Hx Chemotherapy: Yes Hx Radiation Therapy: No Hx Palliative Cancer Treatment: No - Surgical History Surgery Procedure, Year, and Place: [place] [facility] [place]-PROST[facility]CTOMY AT [facility]. 11/25/13, [place] [facility] [place]x Anesthesia Reactions: No - Immunization History Date of Tetanus Vaccine: unk Date of Influenza Vaccine: fall 2016 Infectious Disease History: No Infectious Disease History: Denies: Hx Clostridium Difficile, Hx Hepatitis, Hx Human Immunodeficiency Virus (HIV), Hx of Known/Suspected MRSA, Hx Shingles, Hx Tuberculosis, Hx Known/ Suspected VRE, Hx Known/Suspected VRSA, History Other Infectious Disease, Traveled Outside the [place] in Last 30 Days - Family History Known Family History: Positive: Diabetes, Respiratory Disease - Social History Occupation: Employed Full-time Lives: With Family Alcohol Use: Rare Hx Substance Use: No Substance Use Type: Reports: None Hx Tobacco Use: Yes Smoking Status (MU): Former Smoker Type: Cigarettes Amount Used/How Often: 1/2 PPD X 44 YEARS- OFF AND ON Length of Time of Smoking/Using Tobacco: 20+ YEARS Have You Smoked in the Last Year: Yes Review of Systems Negative: Blurred Vision Cardiovascular: Other - pos: elevated BP Negative: Chest Pain Negative: Shortness Of Breath Negative: Headache All Other Systems Reviewed And Are Negative: Yes Physical Exam - Summary Physical Exam Summary: GENERAL: Patient is a well-developed and nourished Male who is lying comfortable in the stretcher. Patient is not in any acute respiratory distress. HEAD AND FACE: Normocephalic EYES: PERRLA, EOMI x 2. EARS: Hearing grossly intact. MOUTH: Oropharynx within normal limits. NECK: Supple, trachea is midline, no adenopathy, no JVD, no carotid bruit. CHEST: Symmetric, no tenderness at palpation LUNGS: Clear to auscultation bilaterally. No wheezing or crackles. CVS: Regular rate and rhythm, S1 and S2 present, no murmurs or gallops appreciated. ABDOMEN: Soft, non-tender. Bowel sounds are normal. No abdominal abnormal pulsations. EXTREMITIES: Full ROM in all major joints, no edema, no cyanosis or clubbing. NEURO: Alert and oriented x 3. No acute neurological deficits. Speech is normal and follows commands. SKIN: Dry and warm Triage Information Reviewed: Yes Vital Signs On Initial Exam: Initial Vitals Temp Pulse Resp BP Pulse Ox 97.4 F 94 16 174/116 98 07/02/18 09:25 07/02/18 09:25 07/02/18 09:25 07/02/18 09:25 07/02/18 09:25 Vital Signs Reviewed: Yes Diagnostics - Vital Signs Vital Signs Temp Pulse Resp BP Pulse Ox 07/02/18 09:25 97.4 F 94 16 174/116 98 - Laboratory Result Diagrams: 07/02/18 11:04 07/02/18 11:04 Lab Statement: Any lab studies that have been ordered have been reviewed, and results considered in the medical decision making process. - EKG 1040 Cardiac Rate: NL - 83 bpm EKG Rhythm: Sinus Rhythm Summary of EKG Findings: LVH, Q-waves in inferior leads Re-Evaluation - Re-Evaluation 1 Re-Evaluation Time: 11:49 Change: Unchanged Comment: Pt is getting angry, would like to leave. Hypertension Course/Dx - Course Course Of Treatment: Pt is a 63 y/o M with pert PMHx: HTN, Lung CA presents from oncology f/u for elevated BP (162/126). He has been HTN medication non- compliant for an unknown length of time. Denies LUA, SOB, CP, blurred vision. Workup is unremarkable. Upon re-eval, pt was becoming angry, and did not want to wait for us to monitor his BP. Pt is asymptomatic. The patient will be discharged. I saw the pt was on Cardizem 300mg daily, and wrote the same Rx. I discussed results with patient and he reports feeling better. He is hemodynamically stable and safe for discharge. Strict return precautions given and he will otherwise follow up with his/her PCP. - Diagnoses Provider Diagnoses: Hypertension Discharge - Sign-Out/Discharge Documenting (check all that apply): Patient Departure - DC Patient Received Moderate/Deep Sedation with Procedure: No - Discharge Plan Condition: Stable Disposition: HOME Prescriptions: dilTIAZem HCl [Cardizem LA] 300 mg PO DAILY #30 tab.er.24h Patient Education Materials: Diltiazem (By mouth), Hypertension (ED) Referrals: Rodolfo Del Rio MD [Primary Care Provider] - 2 Days Additional Instructions: Follow up with your primary care physician in 1-3 days. RETURN TO THE EMERGENCY DEPARTMENT FOR CHANGING OR WORSENING SYMPTOMS. - Billing Disposition and Condition Condition: STABLE Disposition: Home - Attestation Statements Document Initiated by Maishaibzane: Yes Documenting Scribe: Zenaida Celis Provider For Whom Maishaibe is Documenting (Include Credential): Dr. Jessica Proctor MD Scribe Attestation: Zenaida Ruiz scribed for Dr. Jessica Proctor MD on 07/02/18 at 2110. Scribe Documentation Reviewed: Yes Provider Attestation: The documentation as recorded by the Zenaida lucas accurately reflects the service I personally performed and the decisions made by , Dr. Jessica Proctor MD Status of Scribe Document: Viewed
[2018-07-02 11:17] LABS: ABS Basophils 0 10^3/ul (0-0.2); ABS Eosinophils 0.1 10^3/ul (0-0.6); ABS Lymphocytes 1.5 10^3/ul (1.0-4.8); ABS Monocytes 0.3 10^3/ul (0-0.8); ABS Neutrophils 2.6 10^3/ul (1.5-7.7); ABS Nucleated RBC 0 10^3/ul; Eosinophil % 1.8 %; Hematocrit 49 % (36-46); Hemoglobin 16.3 g/dL (14.0-18.0); Lymphocyte % 32.6 %; Mean Corpuscular HGB Conc 33 g/dL (31-36); Mean Corpuscular Hemoglobin 30 pg (27-31); Mean Corpuscular Volume 90 fL (80-94); Mean Platelet Volume 7.9 fL (7.4-10.4); Nucleated Red Blood Cells % 0.3; Platelet Count 221 10^3/uL (150-450); Red Blood Count 5.46 10^6 /uL (4.18-5.48); Red Cell Distribution Width 15 % (10.5-15); White Blood Count 4.5 10^3/uL (3.5-10.8)
[2018-07-02 11:42] LABS: Troponin I 0.01 ng/mL (<0.04)
[2018-07-02 11:44] LABS: Albumin 4.4 g/dL (3.2-5.2); Albumin/Globulin Ratio 1.4 (1-3); BUN/Creatinine Ratio 18.2 (8-20); Calcium 9.7 mg/dL (8.6-10.3); EGFR African American 63.9 (>60); EGFR Non-African American 52.8 (>60); Globulin 3.2 g/dL (2-4); Potassium 4.3 mmol/L (3.5-5.0); Total Bilirubin 0.4 mg/dL (0.2-1.0); Total Protein 7.6 g/dL (6.4-8.9)
== END | disposition home or self-care (01) ==
LOC: ED 09:22
DX: I10 Essential (primary) hypertension (principal); C34.92 Malignant neoplasm of unspecified part of left bronchus or lung; F17.210 Nicotine dependence, cigarettes, uncomplicated; R94.31 Abnormal electrocardiogram [ECG] [EKG]; Z88.5 Allergy status to narcotic agent; Z85.46 Personal history of malignant neoplasm of prostate; Z91.14 Patient's other noncompliance with medication regimen
CPT/HCPCS: 36415; 80053; 83880; 84153; 84484; 85025; 93005; 99283; A9270-GY; G0103

== ENCOUNTER 2018-08-22 09:35 | Inpatient (IN) | payer BC ==
[2018-08-22] MEDS ORDERED: Levofloxacin 750 MG IVPREMIX(* 750 MG/150 ML BAG IVPB ONE (09:51)
[2018-08-22] MEDS ORDERED: NS 0.9% 1000 ML** 1,000 ML IV.FLUID IV ONE (09:51)
[2018-08-22] MEDS ORDERED: cefTRIAXone(*) 1 GM in NS 0.9% 50 ML* 50 ML IVPB ONE (09:51)
--- NOTE | 2018-08-22 09:59 | ED ---
Respiratory - HPI Summary HPI Summary: This pt is a 63 y/o male presenting to [facility] c/o body aches, sore throat, cough since yesterday. He reports his symptoms have been worsening since yesterday. Pt describes a productive cough with yellow sputum. Additionally notes he has been SOB. Denies fever, chest pain. PMHx significant for lung CA (5 years ago where he had chemo, radiation and surgery, and is currently on remission), HTN. Pt is a former smoker, has not smoked since he was diagnosed with lung CA. - History of Current Complaint Chief Complaint: EDUpperRespNievesplbogdan Stated Complaint: I AM SICK ALL OVER PER PT Time Seen by Provider: 08/22/18 09:47 Hx Obtained From: Patient Onset/Duration: Lasting Days - 2, Still Present Current Severity: Moderate Pain Intensity: 10 Character: Cough (Productive) Sputum Color: Yellow Aggravating Factor(s): Nothing Alleviating Factor(s): Nothing Associated Signs and Symptoms: SOB - Allergy/Home Medications Allergies/Adverse Reactions: Allergies Allergy/AdvReac Type Severity Reaction Status Date / Time hydrocodone Allergy Nausea Verified 08/22/18 10:02 Home Medications: Home Medications Benzonatate 200 mg PO SEE INSTRUCTIONS PRN 08/22/18 [History Confirmed 08/22/18] PMH/Surg Hx/FS Hx/Imm Hx Endocrine/Hematology History: Denies: Hx Anticoagulant Therapy, Hx Blood Disorders, Hx Blood Transfusions, Hx Bone Marrow Disease, Hx Diabetes, Hx Systemic Lupus Erythematosus, Hx Sickle Cell Disease, Hx Thyroid Disease, Hx Anemia, Hx Unexplained Bleeding, Other Endocrine/Hematological Disorders Cardiovascular History: Reports: Hx Hypertension Denies: Hx Aneurysm, Hx Angina, Hx Angioplasty, Hx Auto Implanted Cardiovert Defib, Hx Cardiac Arrest, Hx Cardiomegaly, Hx Congenital Heart Disease, Hx Congestive Heart Failure, Hx Deep Vein Thrombosis, Hx Embolism, Hx Hypercholesterolemia, Hx Hypotension, Hx Pacemaker/ICD, Hx Peripheral Vascular Disease, Hx Rheumatic Fever, Hx Syncope, Hx Valvular Heart Disease, Other Cardiovascular Problems/Disorders Respiratory History: Reports: Other Respiratory Problems/Disorders - LEFT LUNG: CANCER DX'D IN MAR 2014 Denies: Hx Asthma, Hx Chronic Obstructive Pulmonary Disease (COPD) GI History: Denies: Hx Cirrhosis, Hx Crohn's Disease, Hx Diverticulosis, Hx Gall Bladder Disease, Hx Gastroesophageal Reflux Disease, Hx Gastrointestinal Bleed, Hx Hiatal Hernia, Hx Irritable Bowel, Hx Jaundice, Hx Obstructive Bowel, Hx Ileostomy, Hx Pyloric Stenosis, Hx Ulcer, Other GI Disorders History: Reports: Other Problems/Disorders - 08/04 PROSTATE SURGERY Denies: Hx Acute Renal Failure, Hx Benign Prostatic Hyperplasia, Hx Chronic Renal Failure, Hx Dialysis, Hx Kidney Infection, Hx Kidney Stones, Hx Renal Disease Musculoskeletal History: Reports: Hx Arthritis - RIGHT SHOULDER Denies: Hx Rheumatoid Arthritis, Hx Back Problems, Hx Bursitis, Hx Congenital Bone Abnormalities, Hx Fibromyalgia, Hx Gout, Hx Orthopedic Injury, Hx Osteoporosis, Hx Scoliosis, Hx Tendonitis, Other Musculoskeletal History Sensory History: Denies: Hx Contacts or Glasses, Hx Hearing Aid Opthamlomology History: Denies: Hx Contacts or Glasses Neurological History: Denies: Hx Dementia, Hx Developmental Delay, Hx Headaches, Hx Migraine, Hx Nerve Disease, Hx Seizures, Hx Spinal Cord Injury, Hx Transient Ischemic Attacks (TIA), Other Neuro Impairments/Disorders Psychiatric History: Denies: Hx Anxiety, Hx Attention Deficit Hyperactivity Disorder, Hx Eating Disorder, Hx Depression, Hx Panic Disorder, Hx Post Traumatic Stress Disorder, Hx Inpatient Treatment, Hx Community Mental Health Tx, Hx Schizophrenia, Hx Bipolar Disorder, Hx Suicide Attempt, Hx of Violent Episodes Against Others, Hx Substance Abuse, Other Psychiatric Issues/Disorders - Cancer History Cancer Type, Location and Year: Prostate 2013; lung 2014 Hx Chemotherapy: Yes Hx Radiation Therapy: No Hx Palliative Cancer Treatment: No - Surgical History Surgery Procedure, Year, and Place[place] [facility] [place] [facility]. 11[place]/13[place] [facility] [place]x Anesthesia Reactions: No - Immunization History Date of Tetanus Vaccine: unk Date of Influenza Vaccine: fall 2016 Infectious Disease History: No Infectious Disease History: Denies: Hx Clostridium Difficile, Hx Hepatitis, Hx Human Immunodeficiency Virus (HIV), Hx of Known/Suspected MRSA, Hx Shingles, Hx Tuberculosis, Hx Known/ Suspected VRE, Hx Known/Suspected VRSA, History Other Infectious Disease, Traveled Outside the [place] in Last 30 Days - Family History Known Family History: Positive: Diabetes, Respiratory Disease - Social History Alcohol Use: Rare Hx Substance Use: No Substance Use Type: Reports: None Hx Tobacco Use: Yes Smoking Status (MU): Former Smoker Type: Cigarettes Amount Used/How Often: 1/2 PPD X 44 YEARS- OFF AND ON Length of Time of Smoking/Using Tobacco: 20+ YEARS Have You Smoked in the Last Year: Yes Review of Systems Negative: Fever Positive: Sore Throat Negative: Chest Pain Positive: Shortness Of Breath, Cough Positive: Myalgia All Other Systems Reviewed And Are Negative: Yes Physical Exam - Summary Physical Exam Summary: VITAL SIGNS: Reviewed. GENERAL: Patient is a well-developed and nourished male who is lying comfortable in the stretcher. Patient is not in any acute respiratory distress. HEAD AND FACE: No signs of trauma. No ecchymosis, hematomas or skull depressions. No sinus tenderness. EYES: PERRLA, EOMI x 2, No injected conjunctiva, no nystagmus. EARS: Hearing grossly intact. Ear canals and tympanic membranes are within normal limits. MOUTH: Pharyngeal erythema. NECK: Supple, trachea is midline, no adenopathy, no JVD, no carotid bruit, no c- spine tenderness, neck with full ROM. No meningeal signs. CHEST: Symmetric, no tenderness at palpation LUNGS: Decreased breath sounds bilaterally. Diffuse wheezing. CVS: Regular rate and rhythm, S1 and S2 present, no murmurs or gallops appreciated. ABDOMEN: Soft, non-tender. No signs of distention. No rebound no guarding, and no masses palpated. Bowel sounds are normal. EXTREMITIES: FROM in all major joints, no edema, no cyanosis or clubbing. NEURO: Alert and oriented x 3. No acute neurological deficits. Speech is normal and follows commands. SKIN: Dry and warm Triage Information Reviewed: Yes Vital Signs On Initial Exam: Initial Vitals Temp Pulse Resp BP Pulse Ox 98.9 F 115 22 145/109 92 08/22/18 09:39 08/22/18 09:39 08/22/18 09:39 08/22/18 09:39 08/22/18 09:39 Vital Signs Reviewed: Yes Diagnostics - Vital Signs Vital Signs Temp Pulse Resp BP Pulse Ox 08/22/18 09:39 98.9 F 115 22 145/109 92 - Laboratory Result Diagrams: 08/23/18 12:14 08/23/18 12:14 Lab Statement: Any lab studies that have been ordered have been reviewed, and results considered in the medical decision making process. - Radiology Chest XR Radiology Interpretation Completed By: Radiologist Summary of Radiographic Findings: IMPRESSION: No radiographic evidence of acute cardiopulmonary disease. Dr. See has reviewed this report. - EKG 10:04 Cardiac Rate: Tachycardia - at 114 bpm EKG Rhythm: Sinus Tachycardia EKG Comparison: No Significant Change - similar to prior EKG on 07/02/18. Summary of EKG Findings: No ST elevations. Q waves in leads III and aVF. Disposition - Course Assessment/Plan: This pt is a 63 y/o male presenting [place] [facility] [place]/o body aches, sore throat, cough since yesterday. He reports his symptoms have been worsening since yesterday. Pt describes a productive cough with yellow sputum. Additionally notes he has been SOB. Denies fever, chest pain. PMHx significant for lung CA (5 years ago where he had chemo, radiation and surgery, and is currently on remission), HTN. Pt is a former smoker, has not smoked since he was diagnosed with lung CA. Initially the patient met sepsis criteria therefore the patient was started and IV fluids 30 ccs per KG and he was given Rocephin and Levaquin. Blood test results without any significant abnormality except for creatinine 1.34, lactic acid of 3, CPK of 298, CRP of 15.5. Urinalysis is negative for UTI. Chest x-ray impression: No acute pathology. However, the patient is wheezing, has crackles in both bases of the lungs, he is tachycardic, he is febrile therefore I believe that the patient is developing pneumonia. Therefore, I discussed my physical exam, findings and test results with Dr. Ace from the hospitalist services and she agrees to admit patient to her services. Patient is hemodynamically stable, alert and oriented x 3. - Diagnoses Provider Diagnoses: Pneumonia, Sepsis - Physician Notifications Discussed Care Of Patient With: Breanna Ace - hospitalist Time Discussed With Above Provider: 12:30 Instructed by Provider To: Admit As Inpatient - Critical Care Time Critical Care Time: 30-74 min Discharge - Sign-Out/Discharge Documenting (check all that apply): Patient Departure - [place] [facility] [place] imaging exams completed and their final reports reviewed: Yes Patient Received Moderate/Deep Sedation with Procedure: No - Discharge Plan Condition: Stable Disposition: ADMITTED TO [facility] - Billing Disposition and Condition Condition: STABLE Disposition: Admitted to [facility] - Attestation Statements Document Initiated by Scribe: Yes Documenting Scribe: Carolann Gomez Provider For Whom Scribe is Documenting (Include Credential): Saeed See MD Scribe Attestation: I, Carolann Gomez, scribed for Saeed See MD on 08/23/18 at 1829. Scribe Documentation Reviewed: Yes Provider Attestation: The documentation as recorded by the Carolann lucas accurately reflects the service I personally performed and the decisions made by me, Saeed See MD Status of Scribe Document: Viewed
[2018-08-22 10:39] LABS: ABS Eosinophils 0.1 10^3/ul (0-0.6); ABS Lymphocytes 0.7 10^3/ul (1.0-4.8); ABS Monocytes 0.3 10^3/ul (0-0.8); ABS Neutrophils 8.2 10^3/ul (1.5-7.7); Eosinophil % 0.5 %; Hematocrit 49 % (42-52); Lymphocyte % 7.4 %; Mean Corpuscular HGB Conc 33 g/dL (31-36); Mean Corpuscular Hemoglobin 30 pg (27-31); Mean Corpuscular Volume 90 fL (80-94); Platelet Count 227 10^3/uL (150-450); Red Blood Count 5.41 10^6 /uL (4.18-5.48); Red Cell Distribution Width 15 % (10.5-15); White Blood Count 9.3 10^3/uL (3.5-10.8)
[2018-08-22 10:45] LABS: Activated Partial Thrombo Time 35.8 seconds (26.0-38.0); Fibrinogen 357.6 mg/dL (110.8-404.3); INR 0.99 (0.82-1.09)
[2018-08-22] MEDS ORDERED: Albuterol/Ipratropium NEB.SOL* Albuterol 2.5 MG/Ipratropium 0.5 MG 3 ML INH ONE (10:53)
[2018-08-22 11:02] LABS: Albumin 4.4 g/dL (3.2-5.2); Albumin/Globulin Ratio 1.3 (1-3); BUN/Creatinine Ratio 14.9 (8-20); C Reactive Protein 15.53 mg/L (<8.01); Calcium 9.6 mg/dL (8.6-10.3); EGFR African American 65.6 (>60); EGFR Non-African American 54.2 (>60); Globulin 3.4 g/dL (2-4); Potassium 4.1 mmol/L (3.5-5.0); Total Bilirubin 0.6 mg/dL (0.2-1.0); Total Protein 7.8 g/dL (6.4-8.9)
[2018-08-22 11:03] LABS: Troponin I 0.02 ng/mL (<0.04)
[2018-08-22 11:40] LABS: Erythrocyte Sed Rate 8 mm/Hr (0-19)
[2018-08-22 12:45] LABS: Rapid Strep Molecular Negative (Negative)
[2018-08-22 12:46] LABS: Urine Appearance Clear; Urine Bilirubin Negative (Negative); Urine Blood Negative (Negative); Urine Color Yellow; Urine Glucose Negative (Negative); Urine Ketones Negative (Negative); Urine Nitrite Negative (Negative); Urine Protein Negative (Negative); Urine Specific Gravity 1.017 (1.010-1.030); Urine Urobilinogen Negative (Negative)
[2018-08-22] MEDS ORDERED: Albuterol 2.5 MG/3 ML NEB.SOL* (0.083%) INH PRN (13:19)
[2018-08-22] MEDS: Acetaminophen TAB* 325 MG PO PRN ×2 (13:38→20:18)
[2018-08-22] MEDS ORDERED: NS 0.9% 1000 ML** 1,000 ML IV ONE (14:21)
--- NOTE | 2018-08-22 15:06 | PN ---
Sepsis Event Evaluation Date of Evaluation: 08/22/18 Time of Evaluation: 15:00 Current Stage of Sepsis: Severe Sepsis Vital Signs - Last 12 Hours: Vital Signs - 12 hr Temp Pulse Resp BP Pulse Ox 08/22/18 14:50 120 34 166/101 95 08/22/18 14:21 122 39 147/103 94 08/22/18 14:02 125 36 171/108 93 08/22/18 14:01 102.1 F 08/22/18 14:00 126 32 93 08/22/18 13:30 103.0 F 08/22/18 13:21 122 148/106 93 08/22/18 13:09 123 165/103 94 08/22/18 13:00 123 94 08/22/18 12:21 99.8 F 08/22/18 12:00 123 95 08/22/18 11:51 148/108 08/22/18 11:40 120 164/104 93 08/22/18 11:00 115 94 08/22/18 10:59 114 18 94 08/22/18 10:37 114 93 08/22/18 10:36 94 08/22/18 10:02 112 155/114 94 08/22/18 09:39 98.9 F 115 22 145/109 92 Lactic Acid: 08/22/18 08/22/18 10:19 13:50 Lactic Acid 1.6 3.0 H* - Cardiopulmonary Exam Capillary Refill: Immediate Respiratory: Symmetrical Chest Expansion and Respiratory Effort, - - diminished bilat Cardiovascular: NL Sounds; No Murmurs; No JVD - Peripheral Pulse Exam Radial Pulses: Bilateral Normal Pedal Pulses: Bilateral Normal Posterior Tibial Pulse: Bilateral Normal - Skin Exam Skin Exam: Normal Turgor - Veyo Coma Scale Best Eye Response: 4 - Spontaneous Best Motor Response: 6 - Obeys Commands Best Verbal Response: 5 - Oriented Coma Scale Total: 15 Assess/Plan/Problems-Billing Assessment: Mr. Kimbrough is a 63 y.o male with pmhx of lung cancer s/p radiation and chemo completed approx 3 years ago who presented with fever and cough for 2 days - met sepsis criteria on admission and then severe Sepsis when spiked a fever of 103 and lactic acid of 3.0. - Patient Problems (1) Severe sepsis Current Visit: Yes Status: Acute Code(s): A41.9 - SEPSIS, UNSPECIFIED ORGANISM; R65.20 - SEVERE SEPSIS WITHOUT SEPTIC SHOCK SNOMED Code(s): 15957261 Comment: - now meeting severe sepsis with Lactic acid of 3.0 , tachycardia, respirations of 22 and fever 103.0 - suspected source of pneumonia - Given 30 cc/ kg bolus in the ER - will continue NS at 100 cc/hr - continue azithromycin and ceftriaxone Status and Disposition: obv medical
[2018-08-22] MEDS: Enoxaparin(*) 40 MG/0.4 ML SYR SUBCUT SCH (16:07)
--- NOTE | 2018-08-22 16:48 | HP ---
HISTORY AND PHYSICAL: DATE OF ADMISSION: 08/22/18 PROVIDER: Johana Rubio NP PRIMARY CARE PROVIDER: Dr. Rodolfo Del Rio. ATTENDING PHYSICIAN WHILE IN THE HOSPITAL: Dr. Breanna Yu * (dictated by Johana Rubio NP). CHIEF COMPLAINT: Cough, fever. HISTORY OF PRESENT ILLNESS: Mr. Kimbrough is a 63-year-old male with past medical history significant for left upper lobe lung cancer status post resection, chemo and radiation, history of prostate cancer, hypertension, who presented to the emergency room with complaints of cough and fever. The patient reports that this originally started with lower back pain approximately 2 days ago. He said yesterday at work, the back pain became worse and he also developed a cough that started yesterday that was productive with yellow sputum. He reports that last night he started with fever and chills and his symptoms continued and became progressively worse, so he presented to the emergency room for further evaluation. He also reports intermittent chest pain that is worse with cough and deep breath. He reports that this has been consistent for the past 2 days. He denies any shortness of breath. He denies any hemoptysis. Denies any nausea, vomiting, diarrhea, or abdominal pain. Denies any gross hematuria or dysuria. Denies any focal weakness or sensory loss. Denies any visual complaints, dysphagia, arthralgias, myalgias, rashes, lesions, or open sores. Denies any psychosis or anxiety. While in the emergency room, the patient had routine lab work drawn. He was found to have a fever of 103. He did meet sepsis criteria with suspected source of pneumonia. Due to these findings, we were asked to see and evaluate him for admission. PAST MEDICAL HISTORY: Significant for: 1. Lung cancer. s/p resection, radiation, chemo completed 3 years ago. 2. Prostate cancer. 3. Hypertension. PAST SURGICAL HISTORY: 1. Pneumonectomy, left upper lobe lung removed. 2. Prostate surgery. 3. Carpal tunnel surgery. HOME MEDICATIONS: Include: 1. Diltiazem 300 mg p.o. daily. 2. Tessalon Perles 200 mg as needed for cough. ALLERGIES: To HYDROCODONE. FAMILY HISTORY: Mother with a history of breast cancer. Sister with breast cancer. Brother with diabetes and hypertension. SOCIAL HISTORY: The patient reports he quit smoking approximately 7 years ago. Prior to that, he smoked around a pack a day. He denies any alcohol or illicit drug use. He currently works at [employer]. He is single. Surrogate decision maker in the event he is unable to make his own decisions is his sister. He is a full code. REVIEW OF SYSTEMS: An 11-point review of systems was completed. All pertinent positives are mentioned in the HPI, otherwise were negative. PHYSICAL EXAMINATION GENERAL: At this time, Mr. Kimbrough is a 58-year-old male. He is alert and oriented, resting on the stretcher in the emergency room. He does not appear to be in any acute respiratory distress. VITAL SIGNS: Temperature was 103.0, heart rate 125, respirations are 22, O2 saturation 95%, blood pressure 148/108. HEENT: Head is atraumatic, normocephalic. Eyes: EOMs are intact. Sclerae are red. Mucous membranes are moist. NECK: Supple. LUNGS: With inspiratory and expiratory wheezes bilaterally. ABDOMEN: Soft and nontender. Bowel sounds are present x4. CARDIAC: S1 and S2. Regular rate and rhythm. He is tachycardic. EXTREMITIES: He is able to move all 4 extremities. Pedal pulses are +2 bilaterally. There is no clubbing or cyanosis. BACK: The patient does have some tenderness to his right lower back, worse with movement. SKIN: Intact. NEUROLOGIC: He is awake, alert, oriented x3. Speech is clear. Thought process is intact. There is no gross focal deficits. DIAGNOSTIC STUDIES/LAB DATA: WBCs are 9.3, RBCs 5.41, hemoglobin 16.0, hematocrit is 49, platelet count 227. ESR is 8. INR is 0.99. Sodium 138, potassium 4.1, chloride 103, carbon dioxide is 27, anion gap is 8, BUN was 20, creatinine 1.34, which appears to be his baseline. Glucose is 130 and lactic acid 1.6. ASTs were 18, ALTs were 18, and alkaline phosphatase was 86. CK was 298, C-reactive protein was 15.53. BNP was 38. Urine was within normal limits and strep was negative. Chest x-ray, radiologist's impression: No evidence of acute cardiopulmonary disease. He had an electrocardiogram which showed sinus tachycardia at a rate of 114. ASSESSMENT AND PLAN: Mr. Kimbrough is a 63-year-old male with a past medical history significant for prostate cancer status post prostatectomy, lung cancer status post lobectomy, chemo and radiation who presented to the emergency room with complaints of cough and fever. He did meet sepsis criteria, so we were asked to see and evaluate him for admission. 1. Sepsis. The patient meets sepsis criteria with tachypnea and a fever f 103.0. He was given 30 cc/kg bolus of IV fluids in the emergency room as initial lactic acid was 1.6. The patient was also given Levaquin and ceftriaxone antibiotics in the emergency room. I suspect the source is related to pneumonia as patient does report increased cough, productive cough with yellow secretions. His chest x-ray reading was negative, but clinically the patient appears to have pneumonia, so I will treat him with azithromycin, ceftriaxone IV. I will order albuterol nebs as patient does have inspiratory and expiratory wheezing bilaterally. I will continue normal saline at 100 cc per hour. Repeat his CBC and BMP in the a.m. Blood cultures are currently pending. I will send a urine for Legionella and Strep pneumoniae. 2. Tachycardia. I suspect his tachycardia is related to his underlying fever. The patient currently denies any chest pain. He does report occasional chest pain that is only associated with deep breath and cough. 3. Hypertension. I will continue him on his diltiazem as previously prescribed. 4. FEN. He can have a regular diet. 5. Code status. He is a full code. 6. DVT prophylaxis. I will place him on Lovenox subcu q.24 hours. TIME SPENT: Time spent on this admission was approximately 60 minutes, greater than half that time was spent at the bedside reviewing events leading thus far to his hospitalization, performing my physical exam, and reviewing my plan of care. I have discussed this with my attending, Dr. Breanna Yu; she is in agreement with my plan. JOHANA RUBIO, WHIT [id number]/[facility] #: [id number] RAUDEL
[2018-08-23] MEDS: NS 0.9% 1000 ML** 1,000 ML IV SCH ×2 (06:18→18:36)
[2018-08-23] MEDS: Acetaminophen TAB* 325 MG PO PRN (06:23)
[2018-08-23] MEDS: Diltiazem CD CAP* 180 MG PO SCH (08:45)
[2018-08-23] MEDS: Diltiazem CD CAP* 120 MG PO SCH (08:45)
[2018-08-23] MEDS: cefTRIAXone(*) 1 GM in NS 0.9% 50 ML* 50 ML IVPB SCH (08:45)
[2018-08-23] MEDS ORDERED: DILTIAZEM HCL 300 MG PO SCH (09:00)
[2018-08-23] MEDS: Azithromycin 500 mg/250 ml NS 500 MG/250 ML BAG IVPB SCH (11:13)
[2018-08-23 12:32] LABS: Hematocrit 45 % (42-52); Hemoglobin 14.7 g/dL (14.0-18.0); Mean Corpuscular HGB Conc 33 g/dL (31-36); Mean Corpuscular Hemoglobin 30 pg (27-31); Mean Corpuscular Volume 90 fL (80-94); Mean Platelet Volume 7.8 fL (7.4-10.4); Platelet Count 180 10^3/uL (150-450); Red Blood Count 4.97 10^6 /uL (4.18-5.48); Red Cell Distribution Width 15 % (10.5-15); White Blood Count 4.5 10^3/uL (3.5-10.8)
[2018-08-23 12:50] LABS: BUN/Creatinine Ratio 12.4 (8-20); Calcium 8.7 mg/dL (8.6-10.3); EGFR African American 63.9 (>60); EGFR Non-African American 52.8 (>60); Magnesium 1.9 mg/dL (1.9-2.7)
[2018-08-23 12:51] LABS: ABS Neutrophils 2.9 10^3/ul (1.5-7.7)
[2018-08-23 13:21] LABS: Potassium 3.9 mmol/L (3.5-5.0)
--- NOTE | 2018-08-23 13:30 | PN ---
Subjective Date of Service: 08/23/18 Interval History: Patient is feeling better. Patient has not had any subjective fevers or chills. Patient denies CP, dizziness, palpitations, or increased SOB to correlate with arrhythmia on tele. Patient was previously evaluated in the hospital for "irregular heart beat" but it was not found out at the time what that heart rhythm was. Patient denies abdominal pain, diarrhea, dysuria, or other pain. Family History: Unchanged from Admission Social History: Unchanged from Admission Past Medical History: Unchanged from Admission Objective Active Medications: Acetaminophen (Tylenol Tab*) 650 mg PO Q4H PRN PRN Reason: FEVER/PAIN Last Admin: 08/23/18 06:23 Dose: 650 mg Albuterol (Ventolin 2.5 Mg/3 Ml Neb.Fallon*) 2.5 mg INH Q4H PRN PRN Reason: SOB/WHEEZING Diltiazem HCl (Cardizem Cd Cap*) 120 mg PO DAILY [facility] Last Admin: 08/23/18 08:45 Dose: 120 mg Diltiazem HCl (Cardizem Cd Cap*) 180 mg PO DAILY [facility] Last Admin: 08/23/18 08:45 Dose: 180 mg Enoxaparin Sodium (Lovenox(*)) 40 mg SUBCUT Q24H [facility] Last Admin: 08/22/18 16:07 Dose: Not Given Azithromycin (Zithromax 500 Mg/250 Ml) 500 mg in 250 mls @ 250 mls/hr IVPB Q24H [facility] Stop: 08/26/18 11:29 Last Admin: 08/23/18 11:13 Dose: 250 mls/hr Sodium Chloride (Ns 0.9% 1000 Ml) 1,000 mls @ 100 mls/hr IV PER RATE [facility] Last Admin: 08/23/18 06:18 Dose: 100 mls/hr Ceftriaxone Sodium 1 gm/ (Sodium Chloride) 50 mls @ 200 mls/hr IVPB Q24H [facility] Last Admin: 08/23/18 08:45 Dose: 200 mls/hr Vital Signs - 8 hr 08/23/18 08/23/18 08/23/18 06:19 07:20 08:00 Temperature 100.2 F 98.3 F Pulse Rate 117 105 Respiratory 22 Rate Blood Pressure 135/93 (mmHg) O2 Sat by Pulse 93 95 95 Oximetry 08/23/18 11:05 Temperature 98.5 F Pulse Rate 100 Respiratory 24 Rate Blood Pressure 146/84 (mmHg) O2 Sat by Pulse 95 Oximetry Oxygen Devices in Use Now: None Appearance: Patient is a 63yo male who appears stated age and is sitting in the bed in NAD. Eyes: No Scleral Icterus, PERRLA Ears/Nose/Mouth/Throat: NL Teeth, Lips, Gums, Clear Oropharnyx, Mucous Membranes Moist Neck: NL Appearance and Movements; NL JVP, Trachea Midline Respiratory: Symmetrical Chest Expansion and Respiratory Effort, - - Diminished breath sounds in RUL with positive egophony. Cardiovascular: NL Sounds; No Murmurs; No JVD, RRR, No Edema Abdominal: NL Sounds; No Tenderness; No Distention, No Hepatosplenomegaly Lymphatic: No Cervical Adenopathy Extremities: No Edema, No Clubbing, Cyanosis Skin: No Rash or Ulcers, No Nodules or Sclerosis Neurological: Alert and Oriented x 3, NL Sensation, NL Muscle Strength and Tone , - - CN II-XII intact. Result Diagrams: 08/23/18 12:14 08/23/18 12:14 Microbiology and Other Data: Microbiology 08/22/18 10:19 Aerobic Blood Culture - Preliminary Blood Venous No Growth Day 1 Anaerobic Blood Culture - Preliminary No Growth Day 1 08/22/18 10:27 Aerobic Blood Culture - Preliminary Blood Venous No Growth Day 1 08/22/18 13:11 Legionella Urinary Antigen - Final Urine Negative Legionella Antigen Streptococcus pneumoniae Ag Screen - Final Negative S. pneumo Antigen Assess/Plan/Problems-Billing Assessment: Mr. Kimbrough is a 63 y.o male with pmhx of lung cancer s/p radiation and chemo completed approx 3 years ago who presented with fever and cough for 2 days - met sepsis criteria on admission and then severe Sepsis when spiked a fever of 103 and lactic acid of 3.0, who is now improving on antibiotics and supportive care. - Patient Problems (1) Pneumonia Current Visit: Yes Status: Acute Code(s): J18.9 - PNEUMONIA, UNSPECIFIED ORGANISM SNOMED Code(s): 520881269 Comment: - Symptoms consistent with pneumonia including productive cough, sputum production, fevers, wheezing, SOB - No Radiographic evidence of PNA, possibly occult or obscured by previous lobectomy - Continue pulmonary toilet, Inhalers PRN (2) Severe sepsis Current Visit: Yes Status: Acute Code(s): A41.9 - SEPSIS, UNSPECIFIED ORGANISM; R65.20 - SEVERE SEPSIS WITHOUT SEPTIC SHOCK SNOMED Code(s): 25426253 Comment: - Met severe sepsis with Lactic acid of 3.0, now at 1.5 , tachycardia, respirations of 22 and fever 103.0 - suspected source of pneumonia - Given 30 cc/ kg bolus in the ER, stop fluids - Continue azithromycin and ceftriaxone (3) Tachycardia Current Visit: Yes Status: Acute Code(s): R00.0 - TACHYCARDIA, UNSPECIFIED SNOMED Code(s): 4841576 Comment: - Wide complex, Possible preceding P wave with different morphology on one episode - Approximately 30 beats, Mg and K WNL - EKG shows normal Qtc - Risk factors for CAD include HTN, Smoking, History of chest radiation - Check echo for low EF or wall motion abnormalities, recommend outpatient stress. (4) Carcinoma of right lung Current Visit: Yes Status: Acute Code(s): C34.91 - MALIGNANT NEOPLASM OF UNSP PART OF RIGHT BRONCHUS OR LUNG SNOMED Code(s): 031759499 Comment: - S/P Lobectomy and radiation - No signs of recurrence. (5) Hypertension Current Visit: No Status: Chronic Code(s): I10 - ESSENTIAL (PRIMARY) HYPERTENSION SNOMED Code(s): 50055259 Comment: - Normotensive - Continue Diltiazem (6) Prostate cancer Current Visit: No Status: Chronic Code(s): C61 - MALIGNANT NEOPLASM OF PROSTATE SNOMED Code(s): 963031051 Comment: - S/P resection, no LUTS Status and Disposition: Inpatient, hopeful D/C tomorrow.
[2018-08-23] MEDS: Enoxaparin(*) 40 MG/0.4 ML SYR SUBCUT SCH (14:15)
[2018-08-24 06:03] LABS: ABS Eosinophils 0.1 10^3/ul (0-0.6); ABS Lymphocytes 1.4 10^3/ul (1.0-4.8); ABS Monocytes 0.5 10^3/ul (0-0.8); ABS Neutrophils 1.5 10^3/ul (1.5-7.7); Eosinophil % 3.8 %; Hematocrit 47 % (42-52); Hemoglobin 15.6 g/dL (14.0-18.0); Lymphocyte % 39.2 %; Mean Corpuscular HGB Conc 33 g/dL (31-36); Mean Corpuscular Hemoglobin 30 pg (27-31); Mean Corpuscular Volume 89 fL (80-94); Mean Platelet Volume 7.6 fL (7.4-10.4); Nucleated Red Blood Cells % 0.1; Platelet Count 179 10^3/uL (150-450); Red Blood Count 5.23 10^6 /uL (4.18-5.48); Red Cell Distribution Width 15 % (10.5-15); White Blood Count 3.6 10^3/uL (3.5-10.8)
[2018-08-24 06:23] LABS: BUN/Creatinine Ratio 12.4 (8-20); Calcium 8.9 mg/dL (8.6-10.3); EGFR African American 68.5 (>60); EGFR Non-African American 56.6 (>60); Magnesium 1.8 mg/dL (1.9-2.7); Potassium 3.9 mmol/L (3.5-5.0)
[2018-08-24] MEDS ORDERED: Magnesium Sulfate 2 GM IV* 2 GM/50 ML BAG IVPB ONE (07:19)
[2018-08-24] MEDS: Diltiazem CD CAP* 120 MG PO SCH (09:21)
[2018-08-24] MEDS: Diltiazem CD CAP* 180 MG PO SCH (09:21)
[2018-08-24] MEDS: cefTRIAXone(*) 1 GM in NS 0.9% 50 ML* 50 ML IVPB SCH (09:31)
[2018-08-24] MEDS: Azithromycin 500 mg/250 ml NS 500 MG/250 ML BAG IVPB SCH (10:26)
[2018-08-24 10:55] VITALS: BP 137/90
--- NOTE | 2018-08-24 13:53 | ECHO ---
*[facility]* [place] [address] Fax #: [phone] Transthoracic Echocardiogram Patient: Kaylan, Height: 67 in / Valdemar Rubio 170.2 cm : 1955 Weight: 188.6 lb / Study Date: 08/24/2018 85.7 kg Age: 63 BP: 138 / 97 Gender: M BMI/BSA: 29.6 kg/m^2 HR: 88 bpm / 1.97 m^2 *Manager Completions: * Breanna Acosta RUST *Referring Physician: * Jose Enrique Betts *Reading Physician: * Palomo Martins MD History: S/P left upper lobe resection for cancer,s/p chemo and radiation. Risk factors: Former tobacco use. Hypertension. Conclusions Summary: 1. Left ventricle: Systolic function is normal. The estimated ejection fraction is 55-60%. Wall motion is normal; there are no regional wall motion abnormalities. 2. Mitral valve: No echocardiographic evidence for prolapse. There is no significant regurgitation. 3. Aortic valve: There is no evidence of stenosis. 4. Tricuspid valve: There is no significant regurgitation. Study data: Transthoracic echocardiogram. Procedure: Transthoracic echocardiography was performed. Image quality was good. Complete 2D, spectral Doppler, and color flow Doppler. Patient status: Inpatient. Patient room number: 411-1. Rhythm: Normal sinus rhythm. Findings Left ventricle: The cavity size is normal. Wall thickness is normal. Systolic function is normal. The estimated ejection fraction is 55-60%. Wall motion is normal; there are no regional wall motion abnormalities. Doppler parameters are consistent with abnormal left ventricular relaxation (grade 1 diastolic dysfunction). Right ventricle: Well visualized. The cavity size is normal. Wall thickness is normal. Systolic function is normal. Ventricular septum: Well visualized. Left atrium: Well visualized. The atrium is normal in size. Right atrium: Well visualized. The atrium is normal in size. Atrial septum: Well visualized. Mitral valve: Well visualized. The leaflets are mildly thickened. No echocardiographic evidence for prolapse. There is no evidence of stenosis. There is no significant regurgitation. Aortic valve: Well visualized. The valve is trileaflet. The leaflets are normal thickness. There is no evidence of stenosis. There is no significant regurgitation. Tricuspid valve: Well visualized. The leaflets are normal thickness. There is no evidence of stenosis. There is no significant regurgitation. Pulmonic valve: Well visualized. The leaflets are normal thickness. There is no evidence of stenosis. There is no significant regurgitation. Pericardium: There is no significant pericardial effusion. Measurements Left ventricle Value Ref Right atrium Value Ref RUBIA, LAX (L) 3.5 cm 4.2 - SI dim, ES 3.9 cm 3.4 - 5.8 5.3 ESD, LAX 3.0 cm 2.5 - ML dim, ES, A4C 3.7 cm 2.6 - 4.0 4.4 FS, LAX (L) 11 % 25 - 43 SI dim, ES, A4C 3.9 cm 3.4 - PW, ED, LAX (H) 1.2 cm 0.6 - 5.3 1.0 SI dim/bsa, ES, 2.0 cm/m^2 1.8 - FS (L) 21 % 25 - 43 A4C 3.0 Mid-wall FS 8 % -------- PW, ED (H) 1.2 cm 0.6 - Aortic valve Value Ref 1.0 Mariano diam, ED 2.1 cm -------- PW/ID, ED 0.36 -------- Mariano diam/bsa, ED 1.1 cm/m^2 -------- E', lat mariano, TDI (L) 7.9 cm/sec >=10.0 Peak v, S 0.82 m/sec - ------- E/e', lat mariano, TDI 7 -------- VTI, S 18.5 cm ---- ---- E', med mariano, TDI (L) 4.1 cm/sec >=7.0 Mean grad, S 2.0 mm Hg - ------- E/e', med mariano, TDI 14 -------- Peak grad, S 3.0 mm Hg ---- ---- E', avg, TDI 6.0 cm/sec -------- E/e', avg, TDI 9 <=14 Mitral valve Value R ef Peak E 0.56 m/sec -------- LVOT Value Ref Peak A 0.83 m/sec -------- Peak victoria, S 0.78 m/sec -------- Decel time 135 ms -------- Mean grad, S 1 mm Hg -------- Peak E/A ratio 0.7 -------- Ventricular septum Value Ref Pulmonic valve Value Ref IVS, ED 1.0 cm 0.6 - Peak v, S 0.49 m/sec -------- 1.0 Peak grad, S 1.0 mm Hg -------- Right ventricle Value Ref Aortic root Value Ref RUBIA, LAX 2.8 cm -------- Root diam (H) 4.2 cm <4.1 RUBIA minor ax, A4C 2.7 cm 1.9 - Root max diam, ED (H) 4.2 cm <4.1 mid 3.5 Aortic arch Value Ref Left atrium Value Ref Arch diam 3.0 cm -------- ML dim, A4C 4.2 cm -------- SI dim, A4C 4.0 cm -------- Decending aorta Value Ref Vol/bsa, ES, 1-p 20 ml/m^2 12 - 37 Regis peak victoria 0.32 m/sec -------- A4C Vol/bsa, ES, A/L 22 ml/m^2 16 - 34 Legend: (L) and (H) christian values outside specified reference range. Prepared and electronically signed by Palomo Martins MD 08/24/2018 13:53
[2018-08-24 14:09] LABS: ABS Eosinophils 0.1 10^3/ul (0-0.6); ABS Lymphocytes 0.8 10^3/ul (1.0-4.8); ABS Monocytes 0.6 10^3/ul (0-0.8); Lymphocyte % 18.3 %
[2018-08-24] MEDS: Enoxaparin(*) 40 MG/0.4 ML SYR SUBCUT SCH (17:57)
--- NOTE | 2018-08-25 00:14 | DS ---
CC: Dr. Rodolfo Del Rio * DISCHARGE SUMMARY: DATE OF ADMISSION: 08/22/18 DATE OF DISCHARGE: 08/24/18 PRIMARY CARE PROVIDER: Dr. Rodolfo Del Rio. MY ATTENDING WHILE IN THE HOSPITAL: Dr. Shantell Vaughan.* (DICTATED BY AYE CHILDS) PRIMARY DISCHARGE DIAGNOSES: 1. Community-acquired pneumonia. 2. Monomorphic tachyarrhythmia, concern for ventricular tachycardia. SECONDARY DISCHARGE DIAGNOSES: 1. Lung cancer, status post resection, radiation and chemo. 2. Prostate cancer. 3. Hypertension. STUDIES DONE WHILE IN THE HOSPITAL: Electrocardiogram from 08/22/18 shows normal sinus rhythm, no ST segment elevation or depression. No hypertrophy enlargement, rate of 114, QTc of 459. EKG from 08/23/18 shows rate of 100, QTc of 453, no other significant changes. Chest x-ray from 08/22/18 read as no evidence of acute cardiopulmonary disease. Chest x-ray from 08/23/18 read as stable chronic findings as described above, which appeared secondary to left upper lobectomy in the patient's surgical history. Transthoracic echocardiogram 08/23/18 read as ejection fraction of 55% to 60% wall motion is normal. There are no regional wall motion abnormalities of mitral valve. No echocardiographic events or prolapse. There is no significant regurgitation of aortic valve noted. There is no evidence of tricuspid regurgitation. Grade 1 diastolic dysfunction. MEDICATIONS AT DISCHARGE: 1. Diltiazem 300 mg p.o. daily. 2. Benzonatate 200 mg p.o. t.i.d. if needed. 3. Tylenol 650 mg p.o. q.4 hours as needed. 4. Zithromax 250 mg p.o. daily x3. 5. Cefuroxime 500 mg p.o. b.i.d. x10 doses. New medications at discharge: 1. Tylenol. 2. Zithromax. 3. Cefuroxime. Medication discontinued at discharge: None. HOSPITAL COURSE: This is a brief summary of the patient's presentation. For more details, please see the history and physical from Johana Rubio NP on 08/22/18. In brief, the patient is a 63-year-old male with past medical history significant for the above who presented to the emergency department with cough and fever for approximately 2 days prior to his presentation in the emergency department. The patient's cough was productive of yellow sputum. It became progressively worse. It is not associated with any nonpleuritic chest pain or dizziness. The patient was found febrile at 103. The patient was tachycardic. The patient was never hypotensive. The patient did not have an elevated white blood cell count. The patient, however, did have lactic acid 3.0, qualifying him for severe sepsis. The patient had 2 negative troponins on admission. The patient's lactic acidosis responded to fluids. The patient improved greatly on IV antibiotics. The patient had no radiographic evidence of pneumonia; however, he did have a lobectomy, which may have obscured an infiltrate. The patient on 08/23/18 had an episode of approximately 28 beats of asymptomatic tachyarrhythmia. Review at the telemetry monitoring shows the possibility of a P wave preceding the first beat; however, other P waves may be obscured and the telemetry monitoring showed a monomorphic wide complex tachycardia. The patient's electrolytes were optimized. The patient had no EKG evidence of ischemia. The patient had a transthoracic echocardiogram as above given his risk factors for coronary artery disease including hypertension , his age and his previous chest radiation. The patient's echocardiogram was read as above. The patient felt much improved on the day of discharge and he is stable and medically discharged on 08/24/18. PHYSICAL EXAMINATION ON THE DAY OF DISCHARGE: General: The patient is a 63- year- old male who appears stated age and sitting comfortably in the bed, in no acute distress. Vital Signs: At the time of evaluation, temperature 97.9, pulse rate 93, respiratory rate 20, oxygen saturation 96% on room, blood pressure 137/98. HEENT: Head: Normocephalic, atraumatic. Sclerae anicteric. No conjunctival injection. Nasal mucosa is moist. Oral mucosa is moist. No pharyngeal erythema, discharge, or exudate. Neck: Supple, nontender. No lymphadenopathy. No carotid bruits auscultated. No JVD. Cardiac: Regular rate and rhythm. No clicks, murmurs, gallops, or rubs. Pulses 2+ in the dorsalis pedis, posterior tibialis, and radial areas. No bilateral lower extremity edema noted. No bilateral calf tenderness. Respiratory: Diminished auscultation in the right upper lobe. No other adventitious lung sounds. Good air exchange bilaterally. Abdomen: Soft, nontender, nondistended. Bowel sounds present. Normoactive in all 4 quadrants. No hepatosplenomegaly. No abdominal bruits auscultated. No hepatojugular reflux. Genitourinary: No suprapubic or CVA tenderness. Skin: Clean, dry, and intact. No rash. Neuro: Cranial nerves II through XII are intact. Alert and oriented x5. Psychiatric: Pleasant and cooperative. DISCHARGE PLAN: The patient will be discharged to home. The patient will continue on Zithromax for a total of 5 days and Ceftin to continue 7 days total of third generation cephalosporin therapy. The patient is cleared to go back to work on 08/26/18 under his own recognizance. The patient given his ventricular tachycardia and risk factors for coronary artery disease, should discuss the risks and benefits of a stress test with his primary care provider when he is feeling back to his baseline with regard to his respiratory status when the patient should begin the diltiazem. The patient should have routine screening for diabetes and hypercholesterolemia for his age-related risk factors and be treated as such. The patient should return to the hospital for passing out, severe palpitations, chest pain, shortness of breath, high fevers, or other chronic symptoms. The patient should have a heart-healthy diet, caffeine okay. TIME SPENT: Approximately 60 minutes was spent on this discharge of this patient, 30 of which was spent [id number] with the patient obtaining history and physical and discussing treatment plan. AYE CHILDS [id number]/[facility] #: [id number] RAUDEL
== END 2018-08-24 16:40 | disposition home or self-care (01) | DRG 720 ==
LOC: ED 09:35 → MED 13:11 → OBSVTOIN 13:11
PROVIDERS: ADMIT Internal Medicine; ATTEND Hospitalist
DX: A41.9 Sepsis, unspecified organism (principal); J18.9 Pneumonia, unspecified organism; I47.2 Ventricular tachycardia; I10 Essential (primary) hypertension; M19.011 Primary osteoarthritis, right shoulder; R65.20 Severe sepsis without septic shock; Z87.891 Personal history of nicotine dependence; Z85.46 Personal history of malignant neoplasm of prostate; Z88.6 Allergy status to analgesic agent; Z85.118 Personal history of other malignant neoplasm of bronchus and lung; Z92.21 Personal history of antineoplastic chemotherapy; Z82.5 Family history of asthma and other chronic lower respiratory diseases; Z83.3 Family history of diabetes mellitus; Z90.79 Acquired absence of other genital organ(s); Z90.2 Acquired absence of lung [part of]; Z92.3 Personal history of irradiation; R40.2363 Coma scale, best motor response, obeys commands, at hospital admission; R40.2143 Coma scale, eyes open, spontaneous, at hospital admission; R40.2253 Coma scale, best verbal response, oriented, at hospital admission
CPT/HCPCS: 36415; 71046; 80048; 80053; 81003; 82550; 83605; 83735; 83880; 84484; 85025; 85060; 85384; 85610; 85652; 85730; 86140; 87040; 87651; 87899; 90686; 93005; 93306; 99285; A9270-GY; J0456; J0696; J1650; J3475

== ENCOUNTER 2018-12-19 11:44 | Emergency (ER) | payer BC ==
[2018-12-19] MEDS ORDERED: diPHENhydraMINE PO* 50 MG PO ONE (12:45)
[2018-12-19] MEDS ORDERED: predniSONE TAB* 20 MG PO ONE (12:45)
[2018-12-19 12:46] VITALS: BP 140/90
--- NOTE | 2018-12-19 12:47 | UC ---
Hand/Wrist HPI - HPI Summary HPI Summary: Patient is a 63yo male presenting with swelling of right middle and ring fingers since last night when he noticed it at work. States it has gotten worse since yesterday. Denies any injury. Denies swelling anywhere else. Denies numbness and tingling. Notes constant ache that is exacerbated when he make a fist. Patient works at [employer] and notes repetitive movements. Denies radiation of pain. Denies decreased ROM or strength. Denies SOB and difficulty breathing. Denies new medications. Denies any known allergies to food or meds other than hydrocodone. Denies fever, chills, n/v, and abdominal pain. Denies chest pain. States he had carpal tunnel before in left hand. - History Of Current Complaint Chief Complaint: UCUpperExtremity Stated Complaint: RT HAND SWELLING Hx Obtained From: Patient Onset/Duration: Sudden Onset, Lasting Days Severity Currently: Moderate Pain Intensity: 6 Pain Scale Used: 0-10 Numeric - Allergies/Home Medications Allergies/Adverse Reactions: Allergies Allergy/AdvReac Type Severity Reaction Status Date / Time hydrocodone AdvReac Nausea Verified 12/19/18 12:19 Home Medications: Home Medications Albuterol HFA INHALER* [Ventolin HFA Inhaler*] 2 puff INH Q4H PRN 12/19/18 [ History Confirmed 12/19/18] PMH/Surg Hx/FS Hx/Imm Hx Cardiovascular History: Hypertension Cancer History: Lung Cancer, Prostate Cancer Other History Of: Negative For: Anticoagulant Therapy - Surgical History Surgical History: Yes Surgery Procedure, Year, and Place: RIGHT HAND TRIGGER FINGER RELEASE, [facility] [place]. 07/2013-PROSTATECTOMY AT [facility]. 11/25/13, RIGHT SHOULDER, [facility] – [place]. left carpal tunnel. lung CA - part of lung removed - Family History Known Family History: Positive: Diabetes, Respiratory Disease, Non-Contributory - Social History Alcohol Use: Rare Substance Use Type: None Smoking Status (MU): Former Smoker Type: Cigarettes Amount Used/How Often: 1/2 PPD X 44 YEARS- OFF AND ON Length of Time of Smoking/Using Tobacco: 20+ YEARS Have You Smoked in the Last Year: Yes When Did the Patient Quit Smoking/Using Tobacco: 02/2014' Household Exposure Type: Cigarettes - Immunization History Most Recent Influenza Vaccination: 08/24/18 Most Recent Tetanus Shot: UNKNOWN Most Recent Pneumonia Vaccination: 03/22/2014 Review of Systems All Other Systems Reviewed And Are Negative: Yes Constitutional: Positive: Negative. Negative: Fever, Chills Skin: Positive: Negative. Negative: Rash, Bruising Eyes: Positive: Negative ENT: Positive: Negative Respiratory: Positive: Negative. Negative: Shortness Of Breath, Cough Cardiovascular: Positive: Negative. Negative: Palpitations, Chest Pain Gastrointestinal: Positive: Negative. Negative: Abdominal Pain, Vomiting, Nausea Motor: Positive: Negative. Negative: Decreased ROM, Weakness Neurovascular: Negative: Decreased Sensation Musculoskeletal: Positive: Arthralgia, Edema. Negative: Decreased ROM, Myalgia Neurological: Negative: Headache, Paresthesia, Numbness Psychological: Positive: Negative Physical Exam Triage Information Reviewed: Yes Appearance: Well-Appearing, No Pain Distress, Well-Nourished Vital Signs: Initial Vital Signs Temp 97.4 F 12/19/18 12:15 Pulse 72 12/19/18 12:15 Resp 16 12/19/18 12:15 BP 140/105 12/19/18 12:15 Pulse Ox 99 12/19/18 12:15 Vital Signs Reviewed: Yes Eyes: Positive: Conjunctiva Clear ENT: Positive: Hearing grossly normal Neck exam: Normal Neck: Positive: Supple, Nontender, No Lymphadenopathy Respiratory Exam: Normal Respiratory: Positive: Lungs clear, Normal breath sounds, No respiratory distress, No accessory muscle use. Negative: Crackles, Stridor, Wheezing Cardiovascular Exam: Normal Cardiovascular: Positive: RRR, Pulses Normal, Brisk Capillary Refill. Negative : Tachycardia Musculoskeletal Exam: Normal Musculoskeletal: Positive: Strength Intact, ROM Limited @ - right middle and ring finger flexion due to edema, Edema @ - right 3rd and 4th MCP joints and fingers, Other: - negative tinel and phalen tests Neurological: Positive: Alert, Muscle Tone Normal Skin: Positive: Other - no ecchymosis noted. no lacerations or evidence of trauma. Negative: Rashes Hand/Wrist Course/Dx - Course Course Of Treatment: Discussed with patient that it is difficult to know what has caused his pain and edema in his fingers. His VS were stable throughout entire visit today. No sign of respiratory distress. He was given prednisone here and a prescription for home to help with inflammation. I instructed him to use rest and elevation of the hand to help reduce swelling. He may take over the counter pain medications as directed for pain relief. I stressed the importance of following up with his PCP as soon as possible for further evaluation. Instructed him to go to the ED if he experiences increased swelling, redness, pain, inability to move your hand or fingers, difficulty breathing, or swelling of lips, tongue, or throat. - Differential Dx/Diagnosis Provider Diagnosis: Finger swelling Discharge ED - Sign-Out/Discharge Documenting (check all that apply): Patient Departure All imaging exams completed and their final reports reviewed: No Studies - Discharge Plan Condition: Stable Disposition: HOME Prescriptions: predniSONE TAB* [Deltasone 20 MG TAB*] 40 mg PO DAILY #10 tab Referrals: Rodolfo Del Rio MD [Primary Care Provider] - As Soon As Possible Additional Instructions: As discussed, it is difficult to know what is causing the pain and swelling of your fingers. Take the prednisone as prescribed for symptom relief. Rest and elevate the hand to help reduce swelling and inflammation. You may take over the counter pain medications as directed for pain relief. It is important to follow up with your primary care physician as soon as possible for further evaluation. Go to the emergency room if you experience increased swelling, redness, pain, inability to move your hand or fingers, swelling of lips, tongue, or throat. - Billing Disposition and Condition Condition: STABLE Disposition: Home - Attestation Statements Provider Attestation: I was available for consult. This patient was seen by the ZAKIA. The patient was not presented to, seen by, or examined by me. Kwesi Izaguirre MD
== END 2018-12-19 13:15 | disposition home or self-care (01) ==
LOC: UCEAST 11:44
DX: M79.89 Other specified soft tissue disorders (principal); I10 Essential (primary) hypertension; Z88.5 Allergy status to narcotic agent; Z87.891 Personal history of nicotine dependence
CPT/HCPCS: 99212; A9270-GY; G0463; J7512

== ENCOUNTER 2019-02-22 17:44 | Emergency (ER) | payer BC ==
--- NOTE | 2019-02-22 18:05 | UC ---
Respiratory Complaint HPI - HPI Summary HPI Summary: 63 yo with onset of sore throat and cough this morning, without fever or shortness of breath. he has a hx of hypertension and past lung cancer, treated with ? lobectomy in 2014. - History of Current Complaint Chief Complaint: UCGeneralIllness Stated Complaint: THROAT PAIN Time Seen by Provider: 02/22/19 18:04 Hx Obtained From: Patient Onset/Duration: Gradual Onset, Lasting Hours Timing: Constant Severity Initially: Mild Severity Currently: Mild Pain Intensity: 5 Character: Cough: Nonproductive Aggravating Factors: Recumbent Position Alleviating Factors: Nothing Associated Signs And Symptoms: Positive: URI - Risk Factors Pulmonary Embolism Risk Factors: Negative Cardiac Risk Factors: Hypertension Pseudomonas Risk Factors: Negative Tuberculosis Risk Factors: Negative - Allergies/Home Medications Allergies/Adverse Reactions: Allergies Allergy/AdvReac Type Severity Reaction Status Date / Time hydrocodone AdvReac Nausea Verified 02/22/19 17:51 Home Medications: Home Medications Benzonatate CAP* [Tessalon 100 MG CAP*] 100 mg PO TID PRN 02/22/19 [History Confirmed 02/22/19] Omeprazole 20 mg PO DAILY 02/22/19 [History Confirmed 02/22/19] PMH/Surg Hx/FS Hx/Imm Hx Cardiovascular History: Hypertension Cancer History: Lung Cancer Other History Of: Negative For: Anticoagulant Therapy - Surgical History Surgical History: Yes Surgery Procedure, Year, and Place: 1999' RIGHT HAND TRIGGER FINGER RELEASE, [facility]. 07/2013-PROSTATECTOMY AT [facility]. 11/25/13, RIGHT SHOULDER, [facility]. left carpal tunnel. lung CA - part of lung removed - Family History Known Family History: Positive: Diabetes, Respiratory Disease, Non-Contributory - Social History Occupation: Employed Full-time Lives: With Family Alcohol Use: Rare Substance Use Type: None Smoking Status (MU): Former Smoker Type: Cigarettes Amount Used/How Often: 1/2 PPD X 44 YEARS- OFF AND ON Length of Time of Smoking/Using Tobacco: 20+ YEARS Have You Smoked in the Last Year: Yes When Did the Patient Quit Smoking/Using Tobacco: 02/2014' Household Exposure Type: Cigarettes - Immunization History Most Recent Influenza Vaccination: 08/24/18 Most Recent Tetanus Shot: UNKNOWN Most Recent Pneumonia Vaccination: 03/22/2014 Review of Systems All Other Systems Reviewed And Are Negative: Yes Constitutional: Positive: Negative Skin: Positive: Negative Eyes: Positive: Eye Redness ENT: Positive: Sore Throat Respiratory: Positive: Cough. Negative: Shortness Of Breath Cardiovascular: Positive: Negative Gastrointestinal: Positive: Negative Genitourinary: Positive: Negative Motor: Positive: Negative Neurovascular: Positive: Negative Musculoskeletal: Positive: Negative Neurological: Positive: Negative Psychological: Positive: Negative Is Patient Immunocompromised?: No Physical Exam Triage Information Reviewed: Yes Appearance: No Pain Distress, Ill-Appearing - looks mildly unwell Vital Signs: Initial Vital Signs Temp 98.1 F 02/22/19 17:48 Pulse 99 02/22/19 17:48 Resp 18 02/22/19 17:48 BP 142/94 02/22/19 17:48 Pulse Ox 98 02/22/19 17:48 Eyes: Positive: Conjunctiva Inflamed - bilateral injection without drainage. ENT: Positive: Pharyngeal erythema, TMs normal. Negative: Tonsillar swelling Neck: Positive: Supple, Nontender, No Lymphadenopathy Respiratory: Positive: Lungs clear, Normal breath sounds, No respiratory distress Cardiovascular: Positive: RRR, No Murmur Musculoskeletal Exam: Normal Neurological Exam: Normal Neurological: Positive: Alert Psychological Exam: Normal Skin Exam: Normal Respiratory Course/Dx - Course Course Of Treatment: symptomatic treatment of viral uri of short duration. - Differential Dx/Diagnosis Differential Diagnosis/HQI/PQRI: Bronchitis, Laryngitis, Lower Resp Infection Provider Diagnosis: URI, acute Discharge ED - Sign-Out/Discharge Documenting (check all that apply): Patient Departure All imaging exams completed and their final reports reviewed: No Studies - Discharge Plan Condition: Stable Disposition: HOME Patient Education Materials: Upper Respiratory Infection (ED) Forms: *Work Release Referrals: Rodolfo Del Rio MD [Primary Care Provider] - Additional Instructions: Your symptoms suggest a viral illness. Continue symptomatic treatment and remain off work tomorrow. Follow up if you develop a persistent fever or worsening cough. - Billing Disposition and Condition Condition: STABLE Disposition: Home
[2019-02-22 18:14] VITALS: BP 142/94
== END 2019-02-22 18:33 | disposition home or self-care (01) ==
LOC: UCEAST 17:44
DX: J06.9 Acute upper respiratory infection, unspecified (principal); I10 Essential (primary) hypertension; Z88.5 Allergy status to narcotic agent; Z85.118 Personal history of other malignant neoplasm of bronchus and lung; Z87.891 Personal history of nicotine dependence
CPT/HCPCS: 99211; G0463

== ENCOUNTER 2019-02-23 06:04 | Emergency (ER) | payer BC ==
[2019-02-23 07:32] LABS: ABS Eosinophils 0.1 10^3/ul (0-0.6); ABS Monocytes 0.5 10^3/ul (0-0.8); ABS Neutrophils 6.8 10^3/ul (1.5-7.7); Eosinophil % 1.7 %; Hematocrit 46 % (42-52); Lymphocyte % 11.3 %; Mean Corpuscular HGB Conc 35 g/dL (31-36); Mean Corpuscular Hemoglobin 31 pg (27-31); Mean Corpuscular Volume 89 fL (80-94); Mean Platelet Volume 7.7 fL (7.4-10.4); Nucleated Red Blood Cells % 0.1; Platelet Count 222 10^3/uL (150-450); Red Blood Count 5.17 10^6 /uL (4.18-5.48); Red Cell Distribution Width 14 % (10-15); White Blood Count 8.4 10^3/uL (3.5-10.8)
[2019-02-23 07:48] LABS: Albumin 4.3 g/dL (3.2-5.2); Albumin/Globulin Ratio 1.5 (1-3); Calcium 9.2 mg/dL (8.6-10.3); EGFR African American 62.3 (>60); EGFR Non-African American 51.5 (>60); Globulin 2.8 g/dL (2-4); Potassium 3.9 mmol/L (3.5-5.0); Total Bilirubin 0.7 mg/dL (0.2-1.0); Total Protein 7.1 g/dL (6.4-8.9)
[2019-02-23] MEDS ORDERED: Acetaminophen TAB* 325 MG PO ONE (08:48)
[2019-02-23] MEDS ORDERED: Benzonatate CAP* 100 MG PO ONE (08:48)
[2019-02-23] MEDS ORDERED: Azithromycin TAB* 250 MG PO ONE (08:48)
[2019-02-23 09:16] VITALS: BP 147/93
--- NOTE | 2019-02-23 10:42 | ED ---
Respiratory - HPI Summary HPI Summary: This patient is a 63-year-old male with a remote history of lung cancer, not being currently treated presenting to the ED with cough and congestion 2 days. He was seen at urgent care yesterday and was diagnosed with viral illness. He was not given any medications including cough medication or antibiotics. He feels symptoms have been worsening over the past day. He is endorsing mild shortness of breath with worsening cough. He states he feels slightly diaphoretic at home, no chills. He has not taken his temperature. He continues to eat and drink okay. He denies any chest pain or abdominal pain. He denies any other symptoms. His cough is without production. - History of Current Complaint Chief Complaint: EDUpperRespComplaint Stated Complaint: WAS SEEN AT AND NOT FEELING BETTER PT PT Time Seen by Provider: 02/23/19 06:46 Hx Obtained From: Patient Onset/Duration: Sudden Onset Timing: Constant Initial Severity: Moderate Current Severity: Moderate Pain Intensity: 1 Character: Wheezing, Cough (Nonproductive) Sputum Amount: Scant Sputum Color: Clear Aggravating Factor(s): URI Alleviating Factor(s): MDI (Frequency Of Use), Rest Associated Signs and Symptoms: URI, Diaphoresis - Risk Factors Status Asthmaticus Risk Factors: Negative Pulmonary Embolism Risk Factors: Negative Cardiac Risk Factors: Negative Pseudomonas Risk Factors: Negative Tuberculosis Risk Factors: Negative - Allergy/Home Medications Allergies/Adverse Reactions: Allergies Allergy/AdvReac Type Severity Reaction Status Date / Time hydrocodone AdvReac Nausea Verified 02/23/19 06:07 Home Medications: Home Medications Diclofenac Sodium 75 mg PO BID 02/23/19 [History Confirmed 02/23/19] PMH/Surg Hx/FS Hx/Imm Hx Previously Healthy: Yes Endocrine/Hematology History: Denies: Hx Anticoagulant Therapy, Hx Blood Disorders, Hx Blood Transfusions, Hx Bone Marrow Disease, Hx Diabetes, Hx Systemic Lupus Erythematosus, Hx Sickle Cell Disease, Hx Thyroid Disease, Hx Anemia, Hx Unexplained Bleeding, Other Endocrine/Hematological Disorders Cardiovascular History: Reports: Hx Hypertension Denies: Hx Aneurysm, Hx Angina, Hx Angioplasty, Hx Auto Implanted Cardiovert Defib, Hx Cardiac Arrest, Hx Cardiomegaly, Hx Congenital Heart Disease, Hx Congestive Heart Failure, Hx Deep Vein Thrombosis, Hx Embolism, Hx Hypercholesterolemia, Hx Hypotension, Hx Pacemaker/ICD, Hx Peripheral Vascular Disease, Hx Rheumatic Fever, Hx Syncope, Hx Valvular Heart Disease, Other Cardiovascular Problems/Disorders Respiratory History: Reports: Hx Lung Cancer - lef lung, Other Respiratory Problems/Disorders - HX OF LUNG CA Denies: Hx Asthma, Hx Chronic Obstructive Pulmonary Disease (COPD) GI History: Denies: Hx Cirrhosis, Hx Crohn's Disease, Hx Diverticulosis, Hx Gall Bladder Disease, Hx Gastroesophageal Reflux Disease, Hx Gastrointestinal Bleed, Hx Hiatal Hernia, Hx Irritable Bowel, Hx Jaundice, Hx Obstructive Bowel, Hx Ileostomy, Hx Pyloric Stenosis, Hx Ulcer, Other GI Disorders History: Reports: Other Problems/Disorders - 08/04 PROSTATE SURGERY Denies: Hx Acute Renal Failure, Hx Benign Prostatic Hyperplasia, Hx Chronic Renal Failure, Hx Dialysis, Hx Kidney Infection, Hx Kidney Stones, Hx Renal Disease Musculoskeletal History: Reports: Hx Arthritis - RIGHT SHOULDER Denies: Hx Rheumatoid Arthritis, Hx Back Problems, Hx Bursitis, Hx Congenital Bone Abnormalities, Hx Fibromyalgia, Hx Gout, Hx Orthopedic Injury, Hx Osteoporosis, Hx Scoliosis, Hx Tendonitis, Other Musculoskeletal History Sensory History: Denies: Hx Contacts or Glasses, Hx Hearing Aid Opthamlomology History: Denies: Hx Contacts or Glasses Neurological History: Denies: Hx Dementia, Hx Developmental Delay, Hx Headaches, Hx Migraine, Hx Nerve Disease, Hx Seizures, Hx Spinal Cord Injury, Hx Transient Ischemic Attacks (TIA), Other Neuro Impairments/Disorders Psychiatric History: Denies: Hx Anxiety, Hx Attention Deficit Hyperactivity Disorder, Hx Eating Disorder, Hx Depression, Hx Panic Disorder, Hx Post Traumatic Stress Disorder, Hx Inpatient Treatment, Hx Community Mental Health Tx, Hx Schizophrenia, Hx Bipolar Disorder, Hx Suicide Attempt, Hx of Violent Episodes Against Others, Hx Substance Abuse, Other Psychiatric Issues/Disorders - Cancer History Cancer Type, Location and Year: Prostate 2013; lung 2014 Hx Chemotherapy: Yes Hx Radiation Therapy: No Hx Palliative Cancer Treatment: No - Surgical History Surgery Procedure, Year, and Place: RIGHT HAND TRIGGER FINGER RELEASE, [facility] – [place]. 07/2013-PROSTATECTOMY AT [facility]. 11/25/13, RIGHT SHOULDER, [facility] [place]. left carpal tunnel. lung CA - part of lung removed Hx Anesthesia Reactions: No - Immunization History Date of Tetanus Vaccine: unk Date of Influenza Vaccine: fall 2016 Hx Pertussis Vaccination: No Immunizations Up to Date: Yes Infectious Disease History: No Infectious Disease History: Denies: Hx Clostridium Difficile, Hx Hepatitis, Hx Human Immunodeficiency Virus (HIV), Hx of Known/Suspected MRSA, Hx Shingles, Hx Tuberculosis, Hx Known/ Suspected VRE, Hx Known/Suspected VRSA, History Other Infectious Disease, Traveled Outside the [place] in Last 30 Days - Family History Known Family History: Positive: Diabetes, Respiratory Disease, Non-Contributory - Social History Occupation: Unemployed Lives: With Family Alcohol Use: Rare Hx Substance Use: No Substance Use Type: Reports: None Hx Tobacco Use: Yes Smoking Status (MU): Former Smoker Type: Cigarettes Amount Used/How Often: 1/2 PPD X 44 YEARS- OFF AND ON Length of Time of Smoking/Using Tobacco: 20+ YEARS Have You Smoked in the Last Year: Yes Review of Systems Positive: Skin Diaphoresis. Negative: Fever, Chills, Fatigue Negative: Palpitations, Chest Pain Positive: Shortness Of Breath, Cough Genitourinary: Negative Positive: no symptoms reported, see HPI Negative: Arthralgia, Myalgia Skin: Negative Neurological: Negative All Other Systems Reviewed And Are Negative: Yes Physical Exam Triage Information Reviewed: Yes Vital Signs On Initial Exam: Initial Vitals Temp Pulse Resp BP Pulse Ox 98.7 F 110 28 135/94 93 02/23/19 06:05 02/23/19 06:05 02/23/19 06:05 02/23/19 06:05 02/23/19 06:05 Vital Signs Reviewed: Yes Appearance: Positive: Well-Appearing, Well-Nourished Skin: Positive: Warm, Skin Color Reflects Adequate Perfusion Head/Face: Positive: Normal Head/Face Inspection Eyes: Positive: EOMI, ELIZABETH, Conjunctiva Clear Neck: Positive: Supple, No Lymphadenopathy Respiratory/Lung Sounds: Positive: Wheezes. Negative: Unable to speak in full sentences, Fatigue Cardiovascular: Positive: RRR, Pulses are Symmetrical in both Upper and Lower Extremities Musculoskeletal: Positive: Strength/ROM Intact Neurological: Positive: Speech Normal Psychiatric: Positive: Affect/Mood Appropriate AVPU Assessment: Alert Procedures - Sedation Patient Received Moderate/Deep Sedation with Procedure: No Diagnostics - Vital Signs Vital Signs Temp Pulse Resp BP Pulse Ox 02/23/19 09:16 99.9 F 96 18 147/93 96 02/23/19 09:09 100 147/93 96 02/23/19 09:00 97 96 02/23/19 08:39 97 156/102 94 02/23/19 08:07 96 150/105 95 02/23/19 08:00 92 94 02/23/19 07:38 99 141/95 93 02/23/19 07:00 101 94 02/23/19 06:39 103 95 02/23/19 06:38 103 149/97 95 02/23/19 06:05 98.7 F 110 28 135/94 93 - Laboratory Lab Results: Lab Results 02/23/19 02/23/19 Range/Units 07:25 07:25 WBC 8.4 (3.5-10.8) 10^3/uL RBC 5.17 (4.18-5.48) 10^6 /uL Hgb 16.0 (14.0-18.0) g/dL Hct 46 (42-52) % MCV 89 (80-94) fL MCH 31 (27-31) pg MCHC 35 (31-36) g/dL RDW 14 (10-15) % Plt Count 222 (150-450) 10^3/uL MPV 7.7 (7.4-10.4) fL Neut % (Auto) 80.6 % Lymph % (Auto) 11.3 % [place] % (Auto) 6.0 % Eos % (Auto) 1.7 % Baso % (Auto) 0.4 % Absolute Neuts (auto) 6.8 (1.5-7.7) 10^3/ul Absolute Lymphs (auto) 1.0 (1.0-4.8) 10^3/ul Absolute Monos (auto) 0.5 (0-0.8) 10^3/ul Absolute Eos (auto) 0.1 (0-0.6) 10^3/ul Absolute Basos (auto) 0.0 (0-0.2) 10^3/ul Absolute Nucleated RBC 0.0 10^3/ul Nucleated RBC % 0.1 Sodium 137 (135-145) mmol/L Potassium 3.9 (3.5-5.0) mmol/L Chloride 104 (101-111) mmol/L Carbon Dioxide 24 (22-32) mmol/L Anion Gap 9 (2-11) mmol/L BUN 21 (6-24) mg/dL Creatinine 1.40 H (0.67-1.17) mg/dL Est GFR ( Amer) 62.3 (>60) Est GFR (Non-Af Amer) 51.5 (>60) BUN/Creatinine Ratio 15.0 (8-20) Glucose 115 H (70-100) mg/dL Calcium 9.2 (8.6-10.3) mg/dL Total Bilirubin 0.70 (0.2-1.0) mg/dL AST 15 (13-39) U/L ALT 15 (7-52) U/L Alkaline Phosphatase 77 (34-104) U/L Total Protein 7.1 (6.4-8.9) g/dL Albumin 4.3 (3.2-5.2) g/dL Globulin 2.8 (2-4) g/dL Albumin/Globulin Ratio 1.5 (1-3) Result Diagrams: 02/23/19 07:25 02/23/19 07:25 Lab Statement: Any lab studies that have been ordered have been reviewed, and results considered in the medical decision making process. Disposition - Course Course Of Treatment: During his course of treatment, the patient is evaluated for cough and congestion 2 days. He has not been taking anything over-the- counter for relief of his symptoms. He states he feels diaphoretic, however denies any chills or subjective fevers. He continues to eat and drink okay. He does endorse some shortness of breath. He takes an albuterol inhaler at home and has been using this with good relief. Chest x-ray obtained which is negative for any acute cardiopulmonary findings. Labs obtained which do not show an elevated white count. However, on physical examination, patient appears somewhat diaphoretic and wheezing. Temp is 100.2. He was tachypnic on arrival, but this was reduced fairly quickly. Not tachycardic. He is given azithromycin 500mg in the ED and prescribed 250mg daily x 4 days. This was explained to patient this is prophylactic tx as he is higher risk d/t his hx of lung CA. He will f/u with his PCP in 2-3 days. - Differential Dx - Cardiopulmonary Differential Diagnoses - Cardiopulmonary: Other - PNA, cough, congestion, viral illness, fever - Diagnoses Provider Diagnoses: Cough Discharge ED - Sign-Out/Discharge Documenting (check all that apply): Patient Departure - Discharge Plan Condition: Stable Disposition: HOME Prescriptions: Azithromycin 250 mg PO DAILY #4 tablet Benzonatate CAP* [Tessalon CAP*] 100 mg PO TID #21 cap Patient Education Materials: Fever in Adults (ED), Acute Cough (ED) Referrals: Rodolfo Del Rio MD [Primary Care Provider] - Additional Instructions: I am giving you an antibiotic This is due to your slight fever and cough You do not have evidence of a pneumonia at this time Take azithromycin once daily x 4 days Tessalon three times daily for cough Also use over the counter robitussin and cough drops for relief of cough Tylenol 650mg three times daily for any fevers Please follow up with your PCP within 3 days for recheck - Billing Disposition and Condition Condition: STABLE Disposition: Home
== END 2019-02-23 09:16 | disposition home or self-care (01) ==
LOC: ED 06:04
DX: R05 Cough (principal); I10 Essential (primary) hypertension; Z87.891 Personal history of nicotine dependence; Z85.46 Personal history of malignant neoplasm of prostate; Z85.118 Personal history of other malignant neoplasm of bronchus and lung; Z88.5 Allergy status to narcotic agent
CPT/HCPCS: 36415; 71046; 80053; 85025; 99283; A9270-GY

== ENCOUNTER 2019-05-09 17:32 | Emergency (ER) | payer BC ==
[2019-05-09 18:10] LABS: Influenza A Molecular Negative (Negative); Influenza B Molecular Negative (Negative)
[2019-05-09] MEDS ORDERED: DOXYcycline CAP(*) 100 MG PO ONE (19:35)
[2019-05-09 19:38] VITALS: BP 121/105
--- NOTE | 2019-05-09 19:38 | ED ---
Influenza-Like Illness - HPI Summary HPI Summary: This pt is a 64 Y/O M presenting to [facility] accompanied by his with a CC of influenza-like symptoms that have been present since 05/08/2019. He states that he had a fever of 102 F today prior to taking Ibuprofen with good effect. He states that he had a sore throat at the onset of the disease but states that it has decreased in severity. He states that he has a cough, decreased appetite, CP due to the cough, and myalgia rated a 7/10 in severity. He denies any abdominal pain, N/V, headaches, and increased SOB. He has a PMHx of chronic SOB due to removal of lung tissue following lung CA in his L lung and HTN. - History of Current Complaint Chief Complaint: EDFluSymptoms Time Seen by Provider: 05/09/19 19:28 Hx Obtained From: Patient Onset/Duration: Sudden Onset, Lasting Days - 1, Still Present Severity: Severe Associated Signs & Symptoms: Negative - abdominal pain, N/V, headaches, and increased SOB, Fever - 102 F, Myalgia, Cough, Sore Throat - Allergy/Home Medications Allergies/Adverse Reactions: Allergies Allergy/AdvReac Type Severity Reaction Status Date / Time hydrocodone AdvReac Nausea Verified 05/10/19 12:41 PMH/Surg Hx/FS Hx/Imm Hx Previously Healthy: Yes Endocrine/Hematology History: Denies: Hx Anticoagulant Therapy, Hx Blood Disorders, Hx Blood Transfusions, Hx Bone Marrow Disease, Hx Diabetes, Hx Systemic Lupus Erythematosus, Hx Sickle Cell Disease, Hx Thyroid Disease, Hx Anemia, Hx Unexplained Bleeding, Other Endocrine/Hematological Disorders Cardiovascular History: Reports: Hx Hypertension Denies: Hx Aneurysm, Hx Angina, Hx Angioplasty, Hx Auto Implanted Cardiovert Defib, Hx Cardiac Arrest, Hx Cardiomegaly, Hx Congenital Heart Disease, Hx Congestive Heart Failure, Hx Deep Vein Thrombosis, Hx Embolism, Hx Hypercholesterolemia, Hx Hypotension, Hx Pacemaker/ICD, Hx Peripheral Vascular Disease, Hx Rheumatic Fever, Hx Syncope, Hx Valvular Heart Disease, Other Cardiovascular Problems/Disorders Respiratory History: Reports: Hx Lung Cancer - lef lung, Other Respiratory Problems/Disorders - HX OF LUNG CA Denies: Hx Asthma, Hx Chronic Obstructive Pulmonary Disease (COPD) GI History: Denies: Hx Cirrhosis, Hx Crohn's Disease, Hx Diverticulosis, Hx Gall Bladder Disease, Hx Gastroesophageal Reflux Disease, Hx Gastrointestinal Bleed, Hx Hiatal Hernia, Hx Irritable Bowel, Hx Jaundice, Hx Obstructive Bowel, Hx Ileostomy, Hx Pyloric Stenosis, Hx Ulcer, Other GI Disorders History: Reports: Other Problems/Disorders - 08/04 PROSTATE SURGERY Denies: Hx Acute Renal Failure, Hx Benign Prostatic Hyperplasia, Hx Chronic Renal Failure, Hx Dialysis, Hx Kidney Infection, Hx Kidney Stones, Hx Renal Disease Musculoskeletal History: Reports: Hx Arthritis - RIGHT SHOULDER Denies: Hx Rheumatoid Arthritis, Hx Back Problems, Hx Bursitis, Hx Congenital Bone Abnormalities, Hx Fibromyalgia, Hx Gout, Hx Orthopedic Injury, Hx Osteoporosis, Hx Scoliosis, Hx Tendonitis, Other Musculoskeletal History Sensory History: Denies: Hx Contacts or Glasses, Hx Hearing Aid Opthamlomology History: Denies: Hx Contacts or Glasses Neurological History: Denies: Hx Dementia, Hx Developmental Delay, Hx Headaches, Hx Migraine, Hx Nerve Disease, Hx Seizures, Hx Spinal Cord Injury, Hx Transient Ischemic Attacks (TIA), Other Neuro Impairments/Disorders Psychiatric History: Denies: Hx Anxiety, Hx Attention Deficit Hyperactivity Disorder, Hx Eating Disorder, Hx Depression, Hx Panic Disorder, Hx Post Traumatic Stress Disorder, Hx Inpatient Treatment, Hx Community Mental Health Tx, Hx Schizophrenia, Hx Bipolar Disorder, Hx Suicide Attempt, Hx of Violent Episodes Against Others, Hx Substance Abuse, Other Psychiatric Issues/Disorders - Cancer History Cancer Type, Location and Year: Prostate 2013; lung 2014 Hx Chemotherapy: Yes Hx Radiation Therapy: No Hx Palliative Cancer Treatment: No - Surgical History Surgical History: Yes Surgery Procedure, Year, and Place: RIGHT HAND TRIGGER FINGER RELEASE, [facility] [place]. 07/2013-PROSTATECTOMY AT [facility]. 11/25/13, RIGHT SHOULDER, [facility] [place]. left carpal tunnel. lung CA - part of lung removed Hx Anesthesia Reactions: No - Immunization History Date of Tetanus Vaccine: unk Date of Influenza Vaccine: fall 2016 Immunizations Up to Date: Yes Infectious Disease History: No Infectious Disease History: Denies: Hx Clostridium Difficile, Hx Hepatitis, Hx Human Immunodeficiency Virus (HIV), Hx of Known/Suspected MRSA, Hx Shingles, Hx Tuberculosis, Hx Known/ Suspected VRE, Hx Known/Suspected VRSA, History Other Infectious Disease, Traveled Outside the [place] in Last 30 Days - Family History Known Family History: Positive: Diabetes, Respiratory Disease, Non-Contributory - Social History Occupation: Retired Lives: With Family Alcohol Use: Rare Hx Substance Use: No Substance Use Type: Reports: None Hx Tobacco Use: Yes Smoking Status (MU): Former Smoker Type: Cigarettes Amount Used/How Often: 1/2 PPD X 44 YEARS- OFF AND ON Length of Time of Smoking/Using Tobacco: 20+ YEARS Have You Smoked in the Last Year: Yes Review of Systems Positive: Fever - 102 F Positive: Sore Throat Positive: Chest Pain Positive: Cough. Negative: Shortness Of Breath Negative: Abdominal Pain, Vomiting, Nausea Positive: Myalgia Negative: Headache All Other Systems Reviewed And Are Negative: Yes Physical Exam - Summary Physical Exam Summary: Constitutional: Well-developed, Well-nourished, Alert. (-) Distressed Skin: Warm, Dry HENT: Normocephalic; Atraumatic Eyes: Conjunctiva normal Neck: Musculoskeletal ROM normal neck. (-) JVD, (-) Stridor, (-) Tracheal deviation Cardio: Rhythm regular, rate normal, Heart sounds normal; Intact distal pulses; The pedal pulses are 2+ and symmetric. Radial pulses are 2+ and symmetric. (-) Murmur Pulmonary/Chest wall: Effort normal. (-) Respiratory distress, L upper lung aviles has bronchial breath sounds and egophony, (-) Rales Abd: Soft, (-) tenderness, (-) Distension, (-) Guarding, (-) Rebound Musculoskeletal: (-) Edema Lymph: (-) Cervical adenopathy Neuro: Alert, Oriented x3 Psych: Mood and affect Normal Triage Information Reviewed: Yes Vital Signs On Initial Exam: Initial Vitals Temp Pulse Resp BP Pulse Ox 97.3 F 120 19 169/103 95 05/09/19 17:34 05/09/19 17:34 05/09/19 17:34 05/09/19 17:34 05/09/19 17:34 Vital Signs Reviewed: Yes Procedures - Sedation Patient Received Moderate/Deep Sedation with Procedure: No Diagnostics - Vital Signs Vital Signs Temp Pulse Resp BP Pulse Ox 05/09/19 17:34 97.3 F 120 19 169/103 95 - Laboratory Lab Results: Lab Results 05/09/19 Range/Units 17:37 Influenza A (Rapid) Negative (Negative) Influenza B (Rapid) Negative (Negative) Lab Statement: Any lab studies that have been ordered have been reviewed, and results considered in the medical decision making process. - Radiology CXR Radiology Interpretation Completed By: ED Physician Summary of Radiographic Findings: No acute processes. Pending offical review. Flu Symptom Course/Dx - Course Course Of Treatment: This pt is a 64 Y/O M presenting to [facility] accompanied by his with a CC of influenza-like symptoms that have been present since 2019. He states that he had a fever of 102 F today prior to taking Ibuprofen with good effect. He states that he had a sore throat at the onset of the disease but states that it has decreased in severity. He states that he has a cough, decreased appetite, CP due to the cough, and myalgia rated a 7/10 in severity. His PE found L upper lung aviles has bronchial breath sounds and egophony2. His CXR shows no acute processes and his Flu swabs are negative. Due to the presentations on his PE he will be discharged home with a Dx of PNA. - Diagnoses Provider Diagnoses: PNA (pneumonia) Discharge ED - Sign-Out/Discharge Documenting (check all that apply): Patient Departure - discharge - Discharge Plan Condition: Stable Disposition: HOME Prescriptions: Doxycycline Hyclate 100 mg PO BID #20 tablet. Patient Education Materials: Pneumonia (ED) Referrals: Rodolfo Del Rio MD [Primary Care Provider] - 3 Days (if still having fevers) - Billing Disposition and Condition Condition: STABLE Disposition: Home - Attestation Statements Document Initiated by Alex: Yes Documenting Scribe: Jose Jose Provider For Whom Alex is Documenting (Include Credential): Edwin Garcia MD Scribe Attestation: Jose Ruiz scribed for Edwin Garcia MD on 05/10/19 at 1903. Scribe Documentation Reviewed: Yes Provider Attestation: The documentation as recorded by the Jose lucas accurately reflects the service I personally performed and the decisions made by me, Edwin Garcia MD Status of Scribe Document: Viewed
== END 2019-05-09 19:38 | disposition home or self-care (01) ==
LOC: ED 17:32
DX: J18.9 Pneumonia, unspecified organism (principal); I10 Essential (primary) hypertension; Z85.118 Personal history of other malignant neoplasm of bronchus and lung; Z85.46 Personal history of malignant neoplasm of prostate; Z90.79 Acquired absence of other genital organ(s); Z87.891 Personal history of nicotine dependence; Z88.5 Allergy status to narcotic agent
CPT/HCPCS: 71046; 99282; A9270-GY

== ENCOUNTER 2019-05-10 12:37 | Emergency (ER) | payer BC ==
[2019-05-10 13:53] LABS: ABS Lymphocytes 1.1 10^3/ul (1.0-4.8); ABS Monocytes 0.8 10^3/ul (0-0.8); ABS Neutrophils 3.9 10^3/ul (1.5-7.7); Eosinophil % 0.2 %; Hematocrit 49 % (42-52); Hemoglobin 16.8 g/dL (14.0-18.0); Lymphocyte % 19.2 %; Mean Corpuscular HGB Conc 34 g/dL (31-36); Mean Corpuscular Hemoglobin 30 pg (27-31); Mean Corpuscular Volume 89 fL (80-94); Mean Platelet Volume 8.1 fL (7.4-10.4); Nucleated Red Blood Cells % 0.1; Platelet Count 203 10^3/uL (150-450); Red Blood Count 5.52 10^6 /uL (4.18-5.48); Red Cell Distribution Width 14 % (10-15); White Blood Count 5.8 10^3/uL (3.5-10.8)
[2019-05-10 14:05] LABS: Calcium 9.7 mg/dL (8.6-10.3); Potassium 3.9 mmol/L (3.5-5.0)
[2019-05-10 14:11] LABS: BUN/Creatinine Ratio 12.1 (8-20); EGFR African American 36.1 (>60); EGFR Non-African American 29.9 (>60)
[2019-05-10] MEDS ORDERED: Albuterol/Ipratropium NEB.SOL* Albuterol 2.5 MG/Ipratropium 0.5 MG 3 ML INH ONE (14:50)
--- NOTE | 2019-05-10 14:56 | ED ---
Respiratory - HPI Summary HPI Summary: 64 year old year old male presents with cough for the past 2 days. His shortness of breath is same as his chronic shortness of breath. Denies any chest pain. It is a dry cough. He admits to fevers. He was seen yesterday and had negative chest x-ray and placed on azithromycin. He vomited after the dose of azithromycin last night. He states he feels a little queasy still. Denies any sore throat. Has history of lung cancer that is in remission. He does not smoke anymore. - History of Current Complaint Chief Complaint: EDShortnessOfBreath Stated Complaint: PNEUMONIA PER PT Time Seen by Provider: 05/10/19 14:43 Pain Intensity: 5 - Allergy/Home Medications Allergies/Adverse Reactions: Allergies Allergy/AdvReac Type Severity Reaction Status Date / Time hydrocodone AdvReac Nausea Verified 05/10/19 12:41 PMH/Surg Hx/FS Hx/Imm Hx Endocrine/Hematology History: Denies: Hx Anticoagulant Therapy, Hx Blood Disorders, Hx Blood Transfusions, Hx Bone Marrow Disease, Hx Diabetes, Hx Systemic Lupus Erythematosus, Hx Sickle Cell Disease, Hx Thyroid Disease, Hx Anemia, Hx Unexplained Bleeding, Other Endocrine/Hematological Disorders Cardiovascular History: Reports: Hx Hypertension Denies: Hx Aneurysm, Hx Angina, Hx Angioplasty, Hx Auto Implanted Cardiovert Defib, Hx Cardiac Arrest, Hx Cardiomegaly, Hx Congenital Heart Disease, Hx Congestive Heart Failure, Hx Deep Vein Thrombosis, Hx Embolism, Hx Hypercholesterolemia, Hx Hypotension, Hx Pacemaker/ICD, Hx Peripheral Vascular Disease, Hx Rheumatic Fever, Hx Syncope, Hx Valvular Heart Disease, Other Cardiovascular Problems/Disorders Respiratory History: Reports: Hx Lung Cancer - lef lung, Other Respiratory Problems/Disorders - HX OF LUNG CA Denies: Hx Asthma, Hx Chronic Obstructive Pulmonary Disease (COPD) GI History: Denies: Hx Cirrhosis, Hx Crohn's Disease, Hx Diverticulosis, Hx Gall Bladder Disease, Hx Gastroesophageal Reflux Disease, Hx Gastrointestinal Bleed, Hx Hiatal Hernia, Hx Irritable Bowel, Hx Jaundice, Hx Obstructive Bowel, Hx Ileostomy, Hx Pyloric Stenosis, Hx Ulcer, Other GI Disorders History: Reports: Other Problems/Disorders - 08/04 PROSTATE SURGERY Denies: Hx Acute Renal Failure, Hx Benign Prostatic Hyperplasia, Hx Chronic Renal Failure, Hx Dialysis, Hx Kidney Infection, Hx Kidney Stones, Hx Renal Disease Musculoskeletal History: Reports: Hx Arthritis - RIGHT SHOULDER Denies: Hx Rheumatoid Arthritis, Hx Back Problems, Hx Bursitis, Hx Congenital Bone Abnormalities, Hx Fibromyalgia, Hx Gout, Hx Orthopedic Injury, Hx Osteoporosis, Hx Scoliosis, Hx Tendonitis, Other Musculoskeletal History Sensory History: Denies: Hx Contacts or Glasses, Hx Hearing Aid Opthamlomology History: Denies: Hx Contacts or Glasses Neurological History: Denies: Hx Dementia, Hx Developmental Delay, Hx Headaches, Hx Migraine, Hx Nerve Disease, Hx Seizures, Hx Spinal Cord Injury, Hx Transient Ischemic Attacks (TIA), Other Neuro Impairments/Disorders Psychiatric History: Denies: Hx Anxiety, Hx Attention Deficit Hyperactivity Disorder, Hx Eating Disorder, Hx Depression, Hx Panic Disorder, Hx Post Traumatic Stress Disorder, Hx Inpatient Treatment, Hx Community Mental Health Tx, Hx Schizophrenia, Hx Bipolar Disorder, Hx Suicide Attempt, Hx of Violent Episodes Against Others, Hx Substance Abuse, Other Psychiatric Issues/Disorders - Cancer History Cancer Type, Location and Year: Prostate 2013; lung 2014 Hx Chemotherapy: Yes Hx Radiation Therapy: No Hx Palliative Cancer Treatment: No - Surgical History Surgery Procedure, Year, and Place: RIGHT HAND TRIGGER FINGER RELEASE, [facility]. 07/2013-PROSTATECTOMY AT [facility]. 11/25/13, RIGHT SHOULDER, [facility]. left carpal tunnel. lung CA - part of lung removed Hx Anesthesia Reactions: No - Immunization History Date of Tetanus Vaccine: unk Date of Influenza Vaccine: fall 2016 Infectious Disease History: No Infectious Disease History: Denies: Hx Clostridium Difficile, Hx Hepatitis, Hx Human Immunodeficiency Virus (HIV), Hx of Known/Suspected MRSA, Hx Shingles, Hx Tuberculosis, Hx Known/ Suspected VRE, Hx Known/Suspected VRSA, History Other Infectious Disease, Traveled Outside the in Last 30 Days - Family History Known Family History: Positive: Diabetes, Respiratory Disease, Non-Contributory - Social History Alcohol Use: Rare Hx Substance Use: No Substance Use Type: Reports: None Hx Tobacco Use: Yes Smoking Status (MU): Former Smoker Type: Cigarettes Amount Used/How Often: 1/2 PPD X 44 YEARS- OFF AND ON Length of Time of Smoking/Using Tobacco: 20+ YEARS Have You Smoked in the Last Year: Yes Review of Systems Negative: Fever Negative: Chest Pain Positive: Shortness Of Breath, Cough All Other Systems Reviewed And Are Negative: Yes Physical Exam Triage Information Reviewed: Yes Vital Signs On Initial Exam: Initial Vitals Temp Pulse Resp BP Pulse Ox 97.5 F 122 19 130/97 95 05/10/19 12:39 05/10/19 12:39 05/10/19 12:39 05/10/19 12:39 05/10/19 12:39 Vital Signs Reviewed: Yes Appearance: Positive: Well-Appearing Skin: Positive: Warm, Dry Head/Face: Positive: Normal Head/Face Inspection Eyes: Positive: Normal, EOMI, ELIZABETH, Conjunctiva Clear ENT: Positive: Normal ENT inspection, Pharynx normal, TMs normal Respiratory/Lung Sounds: Positive: Clear to Auscultation, Breath Sounds Present Cardiovascular: Positive: Normal, RRR Abdomen Description: Positive: Nontender, Soft Bowel Sounds: Positive: Present Musculoskeletal: Positive: Normal Neurological: Positive: Normal Psychiatric: Positive: Normal Procedures - Sedation Patient Received Moderate/Deep Sedation with Procedure: No Diagnostics - Vital Signs Vital Signs Temp Pulse Resp BP Pulse Ox 05/10/19 14:26 97.9 F 105 19 111/90 95 05/10/19 12:39 97.5 F 122 19 130/97 95 - Laboratory Lab Results: Lab Results 05/10/19 05/10/19 Range/Units 13:42 13:42 WBC 5.8 (3.5-10.8) 10^3/uL RBC 5.52 H (4.18-5.48) 10^6 /uL Hgb 16.8 (14.0-18.0) g/dL Hct 49 (42-52) % MCV 89 (80-94) fL MCH 30 (27-31) pg MCHC 34 (31-36) g/dL RDW 14 (10-15) % Plt Count 203 (150-450) 10^3/uL MPV 8.1 (7.4-10.4) fL Neut % (Auto) 67.0 % Lymph % (Auto) 19.2 % Newton % (Auto) 13.0 % Eos % (Auto) 0.2 % Baso % (Auto) 0.6 % Absolute Neuts (auto) 3.9 (1.5-7.7) 10^3/ul Absolute Lymphs (auto) 1.1 (1.0-4.8) 10^3/ul Absolute Monos (auto) 0.8 (0-0.8) 10^3/ul Absolute Eos (auto) 0.0 (0-0.6) 10^3/ul Absolute Basos (auto) 0.0 (0-0.2) 10^3/ul Absolute Nucleated RBC 0.0 10^3/ul Nucleated RBC % 0.1 Sodium 135 (135-145) mmol/L Potassium 3.9 (3.5-5.0) mmol/L Chloride 100 L (101-111) mmol/L Carbon Dioxide 24 (22-32) mmol/L Anion Gap 11 (2-11) mmol/L BUN 27 H (6-24) mg/dL Creatinine 2.24 H (0.67-1.17) mg/dL Est GFR ( Amer) 36.1 (>60) Est GFR (Non-Af Amer) 29.9 (>60) BUN/Creatinine Ratio 12.1 (8-20) Glucose 99 (70-100) mg/dL Calcium 9.7 (8.6-10.3) mg/dL Result Diagrams: 05/10/19 13:42 05/10/19 13:42 Lab Statement: Any lab studies that have been ordered have been reviewed, and results considered in the medical decision making process. Re-Evaluation - Re-Evaluation First Eval Re-Evaluation Time: 15:40 Change: Improved Comment: feeling better after breathing treatment Disposition - Course Course Of Treatment: 64 year old year old male presents with cough for the past 2 days. His shortness of breath is same as his chronic shortness of breath. Denies any chest pain. It is a dry cough. He admits to fevers. He was seen yesterday and had negative chest x-ray and placed on azithromycin. He vomited after the dose of azithromycin last night. He states he feels a little queasy still. Denies any sore throat. Has history of lung cancer that is in remission. He does not smoke anymore. On exam lungs clear to auscultation. lab work within normal limits. reviewed chest x-ray from this morning. Discussed likely viral still. Told to continue antibiotic and placed on a course of prednisone. Patient understands and agrees with the plan. - Differential Dx - Cardiopulmonary Differential Diagnoses - Cardiopulmonary: Bronchitis, Influenza, Lower Resp Infection - Diagnoses Provider Diagnoses: Bronchitis Discharge ED - Sign-Out/Discharge Documenting (check all that apply): Patient Departure - Discharge Plan Condition: Good Disposition: HOME Prescriptions: Ondansetron TAB* [Zofran 4 MG Tab*] 4 mg PO Q6H PRN #12 tab PRN Reason: Nausea predniSONE 50 mg TAB [Deltasone 50 mg TAB] 50 mg PO DAILY #4 tab Patient Education Materials: Acute Bronchitis (ED) Forms: *Work Release Referrals: Rodolfo Del Rio MD [Primary Care Provider] - Additional Instructions: Use inhaler one puff every 4 hours for cough as needed Take steroid once a day for 4 more days continue antibiotics as prescribed take zofran every 6 hours as needed for nausea Follow up with primary care physician in 5 days Return to ED if develop any new or worsening symptoms - Billing Disposition and Condition Condition: GOOD Disposition: Home
[2019-05-10 15:19] VITALS: BP 120/91
== END 2019-05-10 15:44 | disposition home or self-care (01) ==
LOC: ED 12:37
DX: J40 Bronchitis, not specified as acute or chronic (principal); I10 Essential (primary) hypertension; Z85.118 Personal history of other malignant neoplasm of bronchus and lung; Z88.5 Allergy status to narcotic agent; Z87.891 Personal history of nicotine dependence
CPT/HCPCS: 36415; 80048; 83880; 85025; 99282; A9270-GY; J7512

== ENCOUNTER 2020-03-13 08:50 | Inpatient (IN) ==
[2020-03-13] MEDS ORDERED: NS 0.9% 1000 ml BAG 1,000 ML IV ONE (10:35)
[2020-03-13 10:47] LABS: ABS Monocytes 0.6 10^3/ul (0-0.8); ABS Neutrophils 4.1 10^3/ul (1.5-7.7); Eosinophil % 0.1 %; Hematocrit 51 % (42-52); Hemoglobin 16.7 g/dL (14.0-18.0); Lymphocyte % 17.3 %; Mean Corpuscular HGB Conc 33 g/dL (31-36); Mean Corpuscular Hemoglobin 30 pg (27-31); Mean Corpuscular Volume 91 fL (80-94); Mean Platelet Volume 9.1 fL (7.4-10.4); Platelet Count 244 10^3/uL (150-450); Red Blood Count 5.58 10^6 /uL (4.18-5.48); Red Cell Distribution Width 14 % (10-15); White Blood Count 5.7 10^3/uL (3.5-10.8)
[2020-03-13 11:04] LABS: Activated Partial Thrombo Time 31.5 seconds (26.0-38.0); INR 1.16 (0.82-1.09); Troponin I 0.03 ng/mL (<0.03)
[2020-03-13 11:19] LABS: ALT 28 U/L (7-52); AST 31 U/L (13-39); Albumin 3.7 g/dL (3.2-5.2); Alkaline Phosphatase 66 U/L (34-104); Anion Gap 11 mmol/L (2-11); BUN/Creatinine Ratio 19.9 (8-20); Blood Urea Nitrogen 32 mg/dL (6-24); C Reactive Protein 116.59 mg/L (<8.01); CO2 Carbon Dioxide 24 mmol/L (22-32); Calcium 9.1 mg/dL (8.6-10.3); Chloride 101 mmol/L (101-111); Creatine Kinase 164 U/L (10-223); EGFR African American 52.9 (>60); EGFR Non-African American 43.7 (>60); Globulin 3.7 g/dL (2-4); Glucose 116 mg/dL (70-100); Potassium 4.1 mmol/L (3.5-5.0); Sodium 136 mmol/L (135-145); Total Protein 7.4 g/dL (6.4-8.9)
[2020-03-13 11:32] LABS: Influenza A Molecular Negative (Negative); Influenza B Molecular Negative (Negative)
[2020-03-13 11:36] LABS: LDH 438 U/L (140-271)
[2020-03-13 11:53] LABS: Ferritin 948.9 ng/mL (24-336)
[2020-03-13] MEDS ORDERED: Al Hydrox/Mg Hydrox/Simet LIQ 30 ML UDC PO PRN (13:51)
[2020-03-13] MEDS ORDERED: Ondansetron 4 mg VIAL 2 MG/ML 2 ml VIAL IV PRN (13:51)
[2020-03-13] MEDS ORDERED: Albuterol HFA INHALER 8 gm MDI INH PRN (13:58)
[2020-03-13] MEDS ORDERED: NS 0.9% 1000 ml BAG 1,000 ML IV SCH (14:00)
[2020-03-13 14:21] LABS: Magnesium 2.2 mg/dL (1.9-2.7)
[2020-03-13] MEDS: Enoxaparin 60 MG/0.6 ML SYR SUBCUT SCH (17:13)
[2020-03-13] MEDS: NS 0.9% 1000 ml BAG 1,000 ML IV SCH (17:14)
[2020-03-13] MEDS ORDERED: Remdesivir 5 MG/ML LIQ IV Vial 200 MG in NS 0.9% 250 ml 210 ML IV ONE (18:00)
[2020-03-14] MEDS: Enoxaparin 60 MG/0.6 ML SYR SUBCUT SCH ×2 (05:04→17:27)
[2020-03-14 05:45] LABS: ABS Lymphocytes 0.8 10^3/ul (1.0-4.8); ABS Monocytes 0.3 10^3/ul (0-0.8); ABS Neutrophils 2.8 10^3/ul (1.5-7.7); Hematocrit 45 % (42-52); Lymphocyte % 21.3 %; Mean Corpuscular HGB Conc 34 g/dL (31-36); Mean Corpuscular Hemoglobin 30 pg (27-31); Mean Corpuscular Volume 90 fL (80-94); Mean Platelet Volume 8.5 fL (7.4-10.4); Platelet Count 244 10^3/uL (150-450); Red Blood Count 4.95 10^6 /uL (4.18-5.48); Red Cell Distribution Width 14 % (10-15)
[2020-03-14 06:05] LABS: BUN/Creatinine Ratio 19.7 (8-20); C Reactive Protein 110.68 mg/L (<8.01); Calcium 8.3 mg/dL (8.6-10.3); EGFR African American 76.4 (>60); EGFR Non-African American 63.2 (>60); Potassium 4.4 mmol/L (3.5-5.0)
[2020-03-14] MEDS: NS 0.9% 1000 ml BAG 1,000 ML IV SCH (07:40)
[2020-03-14] MEDS ORDERED: Remdesivir 5 MG/ML LIQ IV Vial 100 MG in NS 0.9% 250 ml 230 ML IV SCH (18:00)
[2020-03-15] MEDS: Enoxaparin 60 MG/0.6 ML SYR SUBCUT SCH (03:30)
[2020-03-15 10:36] VITALS: BP 128/84
== END 2020-03-15 14:40 | disposition home or self-care (01) | DRG 137 ==
LOC: ED 08:50 → MED 13:51
PROVIDERS: ADMIT Pediatrics; ATTEND Internal Medicine